=== PATIENT | female | born 1940 | race Caucasian/White ===

== ENCOUNTER → 2024-01-21 13:11 | Outpatient (REF) | payer MEDICARE, OTHER, SELFPAY | LOC: RAD 13:11 | PROVIDERS: ATTENDING PHYSICIAN Internal Medicine Cardiovascular Disease; FAMILY PHYSICIAN Internal Medicine | DX: R06.02 Shortness of breath (principal); R79.89 Other specified abnormal findings of blood chemistry; Z86.718 Personal history of other venous thrombosis and embolism; Z95.828 Presence of other vascular implants and grafts | CPT/HCPCS: 71046; 78582; A9540; A9567 ==

== ENCOUNTER 2024-01-24 17:50 | Inpatient (IN) | payer MEDICARE, OTHER, SELFPAY ==
[2024-01-24] VITALS (13 sets, daily range): BP systolic 124–189; BP diastolic 63–109; BMI 33.4; BMI 33.9
--- NOTE | 2024-01-24 12:22 | EDRN ---
Konrad RODRIGUEZ in room w/ pt.
[2024-01-24 12:33] LABS: % Basophils 0.9 % (0-2); % Eosinophils 1.6 % (0-6); % Immature Granulocytes 0.7 % (0-0.5); % Lymphocytes 17.8 % (20.5-51.1); % Monocytes 9.1 % (1.7-9.3); % Neutrophils 69.9 % (42.2-75.2); Absolute Basophils 0.1 10^3/uL (0-0.2); Absolute Eosinophils 0.1 10^3/uL (0-0.7); Absolute Immature Granulocytes 0.1 10^3/uL (0-0.05); Absolute Lymphocytes 1.3 10^3/uL (1.2-3.4); Absolute Monocytes 0.7 10^3/uL (0.1-0.6); Absolute Neutrophils 5.3 10^3/uL (1.4-6.5); Hematocrit 39.6 % (37.0-47.0); Hemoglobin 13.3 g/dL (12.0-16.0); Mean Corp Hgb Conc. 33.6 g/dL (33.0-37.0); Mean Corpuscular Hgb 29.2 pg (27.0-31.0); Mean Platelet Volume 8.7 fL (7.4-10.4); Nucleated Red Blood Cells % 0 %; Platelet Count 291 10^3/uL (130-400); Red Blood Cell Count 4.55 10^6/uL (4.20-5.40); Red Cell Dist. Width 13.5 % (11.5-14.5); White Blood Cell Count 7.5 10^3/uL (4.8-10.8)
--- NOTE | 2024-01-24 12:48 | ED.GENMED ---
History of Present Illness
General
Chief Complaint: Breathing Problem
Time Seen by Provider: 01/24/24 11:40
Travel History
Have you had any contact with someone who has COVID-19?: No
Do you have any symptoms of coronavirus? Fever > 100 degrees, chills, cough, shortness of breath, sore throat, loss of taste or smell, muscle aches, or headache?: No
History of Present Illness
History of Present Illness:
83-year-old female with history of hypertension, hyperlipidemia, and aortic stenosis presents to the emergency department for evaluation of dyspnea on exertion is progressively worsened over the past year. She was seen by her sketch maker and had
an outpatient echocardiogram this morning that showed a 4 cm left atrial mass was advised to come to the emergency department for hospital admission. She also had a chest x-ray and VQ scan done earlier in the week that was unremarkable. She is
anticoagulated due to prior blood clots. Denies any chest pain or dyspnea at rest.
Review of Systems
Review of Systems
Allergies reviewed?: Yes
All Other Systems: ROS reviewed and negative except as documented in HPI and ROS
Phy Exam
Physical Exam
Physical Exam:
GEN: Well appearing, NAD, WDWN
HEENT: Oral mucosa moist, no scleral icterus
Cardiac: Regular rate and rhythm, no murmur
Lung: No respiratory distress, no tachypnea
MSK: No gross deformity or injuries
Skin: Good color, no pallor or jaundice, no rashes
Neuro: AO x3, moves all extremities freely
Psych: Calm, cooperative
Scores
Heart Failure Risk
Heart Failure Risk Score: Not Applicable
Course
Orders/Labs/Results
Orders:
Orders
01/24/24 Lunch
Cholesterol Lowering
01/24/24 11:28
Electrocardiogram (*1) Urgent
Reason for Study: Shortness of Breath
EKG- Treatment ONCE
01/24/24 12:00
Cardiac Monitoring- Treatment ONCE
IV Insert/Care/Rem.- Treatment PRN
01/24/24 12:14
Complete Blood Count/With Diff Urgent
Comprehensive Metabolic Panel Urgent
Troponin I Urgent
01/24/24 13:42
CT Chest Angio W/wo Iv Contras Routine
Comment: ECG gated, attn left atrium
Reason For Exam: LA mass
Abnormal Lab Results
01/24/24
12:14
Abs Immat Gran (auto) 0.1 H 10^3/uL
(0-0.05)
Absolute Monos (auto) 0.7 H 10^3/uL
(0.1-0.6)
Immature Gran % 0.7 H %
(0-0.5)
Lymphocytes % 17.8 L %
(20.5-51.1)
Sodium 134 L mmol/L
(135-145)
BUN 28 H mg/dl
(7-17)
Glucose 103 H mg/dl
(70-99)
Calcium 10.4 H mg/dl
(8.4-10.2)
01/24/24 12:14
01/24/24 12:14
Vital Signs
Initial and Last Documented VS:
Initial Vital Signs
Temp Pulse Resp BP Pulse Ox
98.5 F 104 18 159/109 93
01/24/24 11:24 01/24/24 11:24 01/24/24 11:24 01/24/24 11:24 01/24/24 11:24
Last Documented Vital Signs
Temp Pulse Resp BP Pulse Ox
98.5 F 88 12 160/79 95
01/24/24 11:24 01/24/24 14:15 01/24/24 14:15 01/24/24 14:00 01/24/24 14:15
MDM/Problems Addressed
MDM/Problems Addressed:
Patient was admitted to the hospitalist service for further workup of this new left atrial mass
*Critical Care Note
Total Time (30-74mins, 75-104mins- exclusive of procedures): Not Applicable
ED Attending Note
-
Portions of this chart may have been created with voice recognition software.� Occasional wrong word or��sound alike� substitutions may have occurred due to the inherent limitations of voice recognition software.
Discharge Plan
Departure
Patient Disposition: Admit
Date of Disposition: 01/24/24
Time of Disposition: 12:50
Admit to: Telemetry
Presentation/result/management discussed w/ accepting MD/DO: Hospitalist
Discharge Problem:
Left atrial mass, Dyspnea on exertion
Prescriptions:
No Action
multivitamin Tablet
1 tab PO DAILY
acetaminophen 325 mg Tablet
650 mg PO BID
alprazolam 0.5 mg tablet
0.5 mg PO BID
cyclobenzaprine 5 mg Tablet
5 mg PO HS PRN (Reason: muscle spasm)
losartan-hydrochlorothiazide 100-12.5 mg tablet
1 tab PO DAILY
cholecalciferol (vitamin D3) [Vitamin D3] 25 mcg (1,000 unit) Tablet
50 mcg PO DAILY
azelastine [Astepro] 205.5 mcg (0.15 %) [place],Non-Aerosol
1 spray INTRANASAL BID
Rx Instructions:
2 sprays into each nostril
Gemtesa 75 mg tablet
75 mg PO DAILY
venlafaxine [Effexor XR] 150 MG capsule,extended release 24hr
150 mg PO DAILY
amitriptyline 25 MG tablet
25 mg PO DAILY
docusate sodium 100 MG capsule
100 mg PO BID
metoprolol succinate 25 MG tablet extended release 24 hr
25 mg PO DAILY
Eliquis 5 MG tablet
10 mg PO BID
Rx Instructions:
Take 10 mg (Two 5 mg pills) through 06/13. Starting 06/14 take ONE 5 mg tablet twice a day until told to stop by your doctor.
ascorbic acid (vitamin C) [Vitamin C] 500 mg Tablet
600 mg PO DAILY
cephalexin 500 mg capsule
2,000 mg PO PRN PRN (Reason: 4 hr prior to procedure)
albuterol sulfate [ProAir HFA] 90 mcg/actuation Hfa Aerosol Inhaler
2 puff INHALATION BID
Ocuvite Tablet
1 tab PO DAILY
zolpidem 10 MG tablet
10 mg PO HSPRN PRN (Reason: sleep) Qty: 30 0RF
oxycodone 5 MG tablet
5 mg PO Q4HPRN PRN (Reason: moderate to severe pain) Qty: 10 0RF
simvastatin 80 MG tablet
80 mg PO QPM Qty: 30 0RF
omeprazole 20 MG capsule,delayed release(DR/EC)
20 mg PO DAILY Qty: 30 0RF
Referrals:
Noah Wolfe MD [Family Provider] -
Interventions
Interventions:
*Risk Screen - Suicide Last Done: 01/24/24 11:24
*General Assessment Last Done: 01/24/24 11:24
*Neglect/Abuse Screening Last Done: 01/24/24 11:24
ED- Fall Risk Assessment Last Done: 01/24/24 12:04
*ED COVID-19 Vaccine History Last Done: 01/24/24 12:03
ED- Cardiac Assessment Last Done: 01/24/24 12:20
ED- Pulmonary Assessment Last Done: 01/24/24 12:20
Discharge Date and Time
Print Language: LAO
[2024-01-24 13:04] LABS: ALT (SGPT) 17 U/L (0-35); AST (SGOT) 29 U/L (14-36); Albumin 4.2 g/dl (3.5-5.0); Alkaline Phosphatase 72 U/L (38-126); Blood Urea Nitrogen 28 mg/dl (7-17); Calcium 10.4 mg/dl (8.4-10.2); Carbon Dioxide 26 mmol/L (22-30); Chloride 103 mmol/L (98-107); Estimated Creatinine Clearance 61 ml/min; Glucose 103 mg/dl (70-99); Potassium 4.5 mmol/L (3.5-5.1); Sodium 134 mmol/L (135-145); Total Bilirubin 0.3 mg/dl (0.2-1.3); Total Protein 7.1 g/dl (6.3-8.2); eGFR > 60.00
--- NOTE | 2024-01-24 13:15 | EDRN ---
Pt given cup of water after okayed w/ D. Darinel RODRIGUEZ.
[2024-01-24 13:16] LABS: Troponin I < 0.012 ng/ml
--- NOTE | 2024-01-24 13:50 | EDRN ---
Crystal Rose CREPE SOLE WIRE BRUSHER in to see pt w/ cardiology.
--- NOTE | 2024-01-24 14:10 | CON.CAR ---
Addendum entered and electronically signed by Jeff Robertson MD 01/24/24 17:42:
83 yo female with PMH of recurrent DVT on eliquis, mild was admitted with WAKEFIELD and finding of LUH mass on TTE. She reports progressive WAKEFIELD without chest pain. Exam with RRR, II/ systolic murmur at RUSB, no edema. TTE done today showed EF
55-60% with mild , and echodensity in LA measuring up to 4cm.
Will start with CTA to characterize the LA mass further.
Likely LIONEL Saturday.
Original Note:
Consultation
Consultation Request
Date/Time Consultation Requested: 01/24/24 1p
Date/Time Consultation Performed: 01/24/24 2p
Requesting Provider: David Tena PA-C
Performing Provider: NAGI Kumari for Dr. Robertson
Reason for Consultation: SOB and new LA mass on echo
Medical History
-
Chief Complaint: sob
History of Present Illness:
Mrs. 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 She had an outpatient echo at the [facility]
today and was noted to have a left atrial mass measuring up to 4cm and was sent to the ER for admission/evaluation. She states WAKEFIELD has been for 1 year and progressively worse for several months. WAKEFIELD occurs after walking across a room, improves
with rest. There are no associated cardiac symptoms. She is admitted to the hospitalist service and we are consulted for SOB and left atrial mass. VQ scan this week was low probability for PE as well. She follows with Dr. Vela.
Past Medical History
Past Medical History: Other (as above)
Past Surgical History: Orthopedic (left hip surgery x 2)
Social History
Tobacco: Former Smoker
Alcohol: Other (rare at holidays)
Personal:
Living: With Family
Family History
Family History: Reviewed & Not Pertinent
Allergies / Home Medications
Allergy/AdvReac Type Severity Reaction Status Date / Time
No Known Allergies Allergy Verified 05/28/21 16:04
�Medication �Instructions �Recorded �Confirmed �Type
omeprazole 20 mg capsule,delayed 20 mg PO DAILY Gastrointestinal 06/08/21 01/24/24 Rx
release issue ##30
oxycodone 5 mg tablet 5 mg PO Q4HPRN PRN moderate to 06/08/21 01/24/24 Rx
severe pain #10 tabs
simvastatin 80 mg tablet 80 mg PO QPM High cholesterol #30 06/08/21 01/24/24 Rx
tabs
zolpidem 10 mg tablet 10 mg PO HSPRN PRN sleep #30 tabs 06/08/21 01/24/24 Rx
acetaminophen 325 mg tablet 650 mg PO BID pain 01/24/24 01/24/24 History
albuterol sulfate 90 mcg/actuation 2 puff inhalation BID 01/24/24 01/24/24 History
aerosol inhaler (ProAir HFA) Lung/Breathing Issues
alprazolam 0.5 mg tablet 0.5 mg PO BID anxiety 01/24/24 01/24/24 History
amitriptyline 25 mg tablet 25 mg PO DAILY Mental 01/24/24 01/24/24 History
Health/Anxiety
apixaban 5 mg tablet (Eliquis) 10 mg PO BID Blood Clot 01/24/24 01/24/24 History
Prevention/Tx
ascorbic acid (vitamin C) 500 mg 600 mg PO DAILY Supplement 01/24/24 01/24/24 History
tablet (Vitamin C)
azelastine 205.5 mcg (0.15 %) 1 spray intranasal BID Allergies 01/24/24 01/24/24 History
nasal spray
cephalexin 500 mg capsule 2,000 mg PO PRN PRN 4 hr prior to 01/24/24 01/24/24 History
procedure
cholecalciferol (vitamin D3) 25 50 mcg PO DAILY Supplement 01/24/24 01/24/24 History
mcg (1,000 unit) tablet (Vitamin
D3)
cyclobenzaprine 5 mg tablet 5 mg PO HS PRN muscle spasm 01/24/24 01/24/24 History
docusate sodium 100 mg capsule 100 mg PO BID Constipation 01/24/24 01/24/24 History
losartan 100 1 tab PO DAILY Blood Pressure 01/24/24 01/24/24 History
mg-hydrochlorothiazide 12.5 mg
tablet
metoprolol succinate 25 mg 25 mg PO DAILY Blood Pressure 01/24/24 01/24/24 History
tablet,extended release 24 hr
multivitamin 1 tab PO DAILY Supplement 01/24/24 01/24/24 History
venlafaxine 150 mg 150 mg PO DAILY Mental 01/24/24 01/24/24 History
capsule,extended release 24 hr Health/Anxiety
(Effexor XR)
vibegron 75 mg tablet (Gemtesa) 75 mg PO DAILY bladder 01/24/24 01/24/24 History
vitamin A-vitamin C-vit E-min 1 tab PO DAILY Supplement 01/24/24 01/24/24 History
tablet
Review of Systems
-
History Source: Patient
All other systems: Negative unless noted
Physical Exam
Vital Signs
Temp Pulse Resp BP Pulse Ox
98.5 F 84 20 169/94 94
01/24/24 11:24 01/24/24 13:30 01/24/24 13:30 01/24/24 13:05 01/24/24 13:30
Lab Results
01/24/24 12:14
01/24/24 12:14
Troponin I < 0.012 ng/ml 01/24/24 12:14
Physical Exam
General: Well Developed, Well Nourished and No Apparent Distress
HEENT: Normocephalic, Anicteric and Moist Mucous Membranes
Respiratory: Wheezes (expiratory diffuse)
Cardiac: S1/S2, Regular Rhythm and Murmur (2/6 YANET)
Breast: Deferred by me
GI: Soft, Non Tender, Non Distended and Normal Bowel Sounds
Rectal: Deferred by Provider
Genito-urinary: No Costovertebral Tender
Musculoskeletal: No Clubbing and No Cyanosis
Skin: Warm and Dry
Neuro: AO x 3
Psych: Calm
Impression / Plan
-
LA mass - new on echo today.
- check chest CT today.
- pending CT results, consider LIONEL.
Aortic stenosis - mild on echo today.
- she admits to having rheumatic fever as a child.
HTN - stable on losartan/hct, toprol.
- continue meds and monitor.
HLD - stable on Zocor, continue.
DVT - history on Eliquis.
- briefly stopped since DVT resolved, but PCP resumed Eliquis 2 months ago due to recurrent LE DVT.
- continue Eliquis.
echo 01/24/24: Normal left ventricular size/thickness/function, EF 55-60%, there is an oval/irregular mass is seen within the left atrium which measures up to 4 cm, new mass, mild .
Data Reviewed
-
EKG: Tracing Personally Visualized and interpreted (NSR 93 bpm)
Radiology: Report Reviewed by me (cxr 01/21/24 NAD)
Medical Tests (Nuc Med, Echo etc): Report Reviewed by me (echo 01/24/24: Normal left ventricular size/thickness/function, EF 55-60%, there is an oval/irregular mass is seen within the left atrium which measures up to 4 cm, new mass, mild .) and
Other (VQ scan this week was low probability for PE)
Labs: Labs Reviewed by me
Old Records: Reviewed
--- NOTE | 2024-01-24 14:50 | HPS.HSE ---
Addendum entered and electronically signed by Frank Kyle MD 01/24/24 22:43:
Attending Addendum-
I performed a history and physical exam of the patient and discussed his management with the resident. I reviewed the resident's note and agree with the documented findings and plan of care patient sent to ED by cards re eval of 4cm left atrial mass
seen on echo today. Full 12 point ROS reviewed and negative except as documented Exam- vitals reviewed in chart GEN-nad heart 11/19 SM @ RUSB abd soft LE b/l +1 pitting edema Plan:
# Left Atrial Mass-
- seen on echo 01/23
- cards on board
- check CTA
- LIONEL to eval
# Anxiety/Depression
- cont meds including chronic benzos prn
# HTN
- stable monitor cont meds
# GERD
- cont meds
# Recurrent LE DVT
- has IVC filter
- change dosing of Eliquis to 5 bid - unclear why on 10mg po BID
CODE- Full d/w present
Time spent coordinating care, review of plan of care with resident, review of records, med rec, consults, notes, labs, rads, d/w nursing - 78 mins
Original Note:
Family Physician
-
Family Physician: Noah Wolfe
Chief Complaint
-
Progressive shortness of breath X 1 year, diaphoresis, fatigue.
History of Present Illness
83-year-old female with complex past medical history significant for DVT on Eliquis, hypertension, aortic stenosis, resents to the emergency department for evaluation of exertional shortness of breath that started about an year ago and progressively
worsened. She reports to feeling extremely fatigued, and sweaty over the last few months. She denies any chest pain, palpitations, nausea, vomitings, change in appetite, bloating, change in color of her stools, diarrhea, hematochezia. States
seeking health care on multiple occasions for shortness of breath over the last 1 year but nothing turned out positive. Due to her worsening shortness of breath over the last 2 months her primary care referred her to cardiology for complete
cardiological evaluation.
She was seen by her watch assembly inspector, had an outpatient echocardiogram this morning that showed a 4 cm left atrial mass, and was referred to emergency department by her watch assembly inspector (Dr. Vela).
She states to have severe back pain, peripheral neuropathy, urge urinary incontinence, mild left upper quadrant pain that is usually relieved with passing flatus.
Medical History
Past Medical History
Past Medical History: Reports Other
Additional Past Medical History:
Aortic stenosis, DVT, presence of IVC filter, mixed incontinence, PACs, hypertension, hyperlipidemia, GERD, constipation, melanoma X 2, and uterine prolapse..
Past Surgical History: Reports Other
Additional Past Surgical History:
Left femur fixation, left hip replacement, abdominal hysterectomy, tubal , melanoma excision.
Social History
Tobacco: Former Smoker (1 pack of cigarettes a day for 10 years quit in 1973.)
Alcohol: Occasional
Drug: None
Personal:
Living: With Family
Employment: Retired
Family History
Family History: CAD, Hypertension and Other (Melanoma in father, breast carcinoma in maternal aunts.)
Allergies / Home Medications
Allergies reflects when Allergies were last updated in [employer].
Home Medications with original date entered in [employer]
Allergy/Medication List:
No known allergies.
Review of Systems
-
History Source: Patient
Constitutional: Reports Other (Profuse sweating.)
EENT: Reports No Symptoms
Respiratory: Reports Trouble Breathing
Cardiac: Reports Other (Exertional shortness of breath)
Abdomen/GI: Reports No Symptoms
: Reports No Symptoms
Musculoskeletal: Reports Other (Bilateral lower extremity pain, tingling and numbness.)
Skin: Reports No Symptoms
Neurological: Reports No Symptoms
Endocrine: Reports No Symptoms
Psych: Reports No Symptoms
Physical Exam
Vital Signs
Vital Signs
Temp Pulse Resp BP Pulse Ox
98.5 F 88 12 160/79 95
01/24/24 11:24 01/24/24 14:15 01/24/24 14:15 01/24/24 14:00 01/24/24 14:15
Physical Exam
General: Well Developed, Well Nourished, Comfortable (On room air) and Other
HEENT: NormoCephalic, Atraumatic and PERRLA
Respiratory: Clear (No wheezes, rales, rhonchi.)
Cardiac: S1/S2, Regular Rhythm and Other (Systolic murmur 2/6.)
Breast: Other
GI: Soft, Non Tender, Non Distended and Normal Bowel Sounds
Genito-urinary: Deferred by me
Musculoskeletal: No Clubbing, No Cyanosis and No Edema
Neuro: AO x 3 and Other (Normal strength and tone. Cranial nerves intact. Sensation intact.)
Hematologic/Lymphatic: No Lymphadenopathy
Psych: Calm
Laboratory Results
-
01/24/24 12:14
01/24/24 12:14
Laboratory Results
Total Bilirubin 0.3 mg/dl (0.2-1.3) 01/24/24 12:14
AST 29 U/L (14-36) 01/24/24 12:14
ALT 17 U/L (0-35) 01/24/24 12:14
Alkaline Phosphatase 72 U/L (38-126) 01/24/24 12:14
Troponin I < 0.012 ng/ml 01/24/24 12:14
Impression/Plan
-
IMPRESSION:
83 Y old F's to the emergency room with gradually worsening shortness of breath (exertional) x 1 year, associated with severe fatigue and diaphoresis times last few months.
Diagnosed with left atrial mass of 4 cm.
PLAN:
Left atrial mass-
Echo-Normal left ventricular size, wall thickness and systolic function. LV ejection
fraction is 55-60% by visual assessment.
There is an oval/irregular mass is seen within the left atrium, which measures
up to 4 cm.
Plan is to obtain CT angiogram and possibly transesophageal echocardiogram.
CT angiogram results-
There is no evidence for an intraluminal left atrial mass that would correspond to the finding on earlier echocardiography.
There is a moderate hiatal hernia/partially intrathoracic stomach which is off the posterior and inferior margin of the left atrium. It is felt that this likely accounts for the finding on earlier echocardiography.
Coronary artery calcifications are present.
Thin bands of increased density within both lungs, adjacent to the pleural fissures, stable from examination of May 2021, compatible with scarring and/or chronic atelectasis.
Shortness of breath-
Secondary to left atrial mass versus possible ischemia versus PE versus stenosis of valves.
Troponin levels-WNL.
Sats 95% on room air.
Chest x-ray-no acute cardiopulmonary process.
VQ scan-low probability for PE.
Hyponatremia-
Serum sodium levels at 134.
Hypovolemic hyponatremia. Trend electrolytes.
History of DVT
VQ scan low probability for pulmonary embolism
IVC filters, on Eliquis twice daily.
Continue Eliquis.
Hypertension-
Continue home medication regimen with losartan HCTZ, metoprolol.
Hyperlipidemia-
On simvastatin 80.
Degenerative disc disease-
On oxycodone.
Anxiety, insomnia
Alprazolam twice a day discontinued.
zolpidem 10 mg on hold.
Alprazolam 0.5 mg once in the night.
Depression-
Continue amitriptyline and venlafaxine.
Mixed incontinence-
Continue Gemtesa.
Constipation-
docusate
DVT prophylaxis-on Eliquis
CODE STATUS-Limited DNR, (no intubation and mechanical ventilation.)
Power of associate attorney- Mervin
--- NOTE | 2024-01-24 15:46 | EDRN ---
Ddr. Mccauley was in to see pt prior to CT scan.
--- NOTE | 2024-01-24 18:04 | EDRN ---
NO Delay Nurse Report sent to 3rd floor for TEL bed 338.1 at this time w/ call placed to floor.
--- NOTE | 2024-01-24 18:17 | EDRN ---
Pt is eating her supper at this time. Pt will be transported to her admission bed when she is done eating.
[2024-01-24] MEDS: ProAIR HFA INHALER 2 PUFF INH (20:03)
[2024-01-24] MEDS: ELIQUIS 5 MG PO (20:39)
[2024-01-24] MEDS: ELAVIL 25 MG PO (20:40)
[2024-01-24] MEDS: COLACE 100 MG PO (20:40)
[2024-01-24] MEDS: TYLENOL 650 MG PO (20:40)
[2024-01-24] MEDS: AMBIEN 5 MG PO ×2 (20:40→23:21)
[2024-01-25 03:54] VITALS: BP 127/73
[2024-01-25 07:00] VITALS: BP 143/87
[2024-01-25 07:42] LABS: % Basophils 1.1 % (0-2); % Eosinophils 3.2 % (0-6); % Immature Granulocytes 1.4 % (0-0.5); % Lymphocytes 25.4 % (20.5-51.1); % Monocytes 11.4 % (1.7-9.3); % Neutrophils 57.5 % (42.2-75.2); Absolute Basophils 0.1 10^3/uL (0-0.2); Absolute Eosinophils 0.2 10^3/uL (0-0.7); Absolute Immature Granulocytes 0.1 10^3/uL (0-0.05); Absolute Lymphocytes 1.6 10^3/uL (1.2-3.4); Absolute Monocytes 0.7 10^3/uL (0.1-0.6); Absolute Neutrophils 3.6 10^3/uL (1.4-6.5); Hemoglobin 12.8 g/dL (12.0-16.0); Mean Corp Hgb Conc. 33.7 g/dL (33.0-37.0); Mean Corpuscular Hgb 29.4 pg (27.0-31.0); Mean Corpuscular Volume 87.4 fL (81.0-99.0); Mean Platelet Volume 8.8 fL (7.4-10.4); Nucleated Red Blood Cells % 0 %; Platelet Count 271 10^3/uL (130-400); Red Blood Cell Count 4.35 10^6/uL (4.20-5.40); Red Cell Dist. Width 13.3 % (11.5-14.5); White Blood Cell Count 6.2 10^3/uL (4.8-10.8)
--- NOTE | 2024-01-25 08:54 | W.PN.HOSP.TC ---
Today's Communication/Plan
-
likely d/c
Assessment / Plan
Assessment / Plan
pt is an 83 year old female
Left atrial mass--noted on echo--Ct chest confirms moderate hiatal hernia with partial intrathoracic stomach NOT intraluminal LA mass
Shortness of breath-Secondary to possible ischemia --Troponin levels-WNL--cont outpt workup--Chest x-ray-no acute cardiopulmonary process--VQ scan-low probability for PE.
Hyponatremia-Serum sodium levels at 134.
Hypovolemic hyponatremia. Trend electrolytes.
History of DVT-VQ scan low probability for pulmonary embolism-IVC filters, on Eliquis twice daily--Continue Eliquis.
Essential Hypertension-Continue home medication regimen with losartan HCTZ, metoprolol.
Hyperlipidemia-On simvastatin 80.
Degenerative disc disease-On oxycodone.
Anxiety, insomnia--Alprazolam twice a day discontinued--zolpidem 10 mg on hold--Alprazolam 0.5 mg once in the night.
Depression-Continue amitriptyline and venlafaxine.
Mixed incontinence-Continue Gemtesa.
Constipation-docusate
DVT prophylaxis-on Eliquis
CODE STATUS-Limited DNR, (no intubation and mechanical ventilation.)
Power of locomotive repairer diesel- Mervin
Anticipated Discharge: Today
Subjective/Interval History
-
Date of Service: January 25, 2024
pt asking about her morning meds--otherwise no c/o
Objective Data
-
Labs:
Laboratory Results
01/25/24
06:53
WBC 6.2
Hgb 12.8
Hct 38.0
Plt Count 271
Sodium Pending
Potassium Pending
Chloride Pending
Carbon Dioxide Pending
BUN Pending
Creatinine Pending
Glucose Pending
Calcium Pending
Total Bilirubin Pending
AST Pending
ALT Pending
Alkaline Phosphatase Pending
Vital Signs:
max temp for 24 hours
01/24/24
23:50
Temp 98.6 F
Vital Signs
Temp Pulse Resp BP Pulse Ox
98.5 F 83 18 143/87 92
01/25/24 07:00 01/25/24 07:00 01/25/24 07:00 01/25/24 07:00 01/25/24 07:00
I&O
01/24/24 01/25/24 01/26/24
06:59 06:59 06:59
Intake Total 400 / 400
Balance 400 / 400
Review of Systems
-
All other systems: Reviewed and negative
Physical Exam
-
General: Well Developed, Well Nourished and No Apparent Distress
HEENT: Normocephalic and Atraumatic
Respiratory: Clear to Auscultation; Negative Wheezes or Rhonchi
Cardiac: Regular Rhythm, S1/S2 and Murmur
GI: Soft, Nontender, Nondistended and Normal Bowel Sounds
Musculoskeletal: No Clubbing, No Cyanosis and No Edema
Neuro: Awake and Alert
[2024-01-25] MEDS: ProAIR HFA INHALER 2 PUFF INH (09:08)
[2024-01-25] MEDS: COLACE 100 MG PO (09:15)
[2024-01-25] MEDS: THERAGRAN 1 TABLET PO (09:15)
[2024-01-25] MEDS: ELAVIL 25 MG PO (09:15)
[2024-01-25] MEDS: PROTONIX 40 MG PO (09:16)
[2024-01-25] MEDS: VITAMIN C 500 MG PO (09:16)
[2024-01-25] MEDS: TYLENOL 650 MG PO (09:16)
[2024-01-25] MEDS: TOPROL XL 25 MG PO (09:17)
[2024-01-25] MEDS: ROXICODONE 5 MG PO (09:18)
[2024-01-25] MEDS: HYZAAR 100-12.5 TABLET 1 TAB PO (09:19)
[2024-01-25] MEDS: EFFEXOR XR 150 MG PO (09:23)
[2024-01-25] MEDS: ELIQUIS 5 MG PO (09:24)
[2024-01-25 10:18] LABS: ALT (SGPT) 14 U/L (0-35); AST (SGOT) 28 U/L (14-36); Albumin 3.9 g/dl (3.5-5.0); Alkaline Phosphatase 69 U/L (38-126); Blood Urea Nitrogen 21 mg/dl (7-17); Carbon Dioxide 27 mmol/L (22-30); Chloride 103 mmol/L (98-107); Estimated Creatinine Clearance 58 ml/min; Glucose 91 mg/dl (70-99); Sodium 139 mmol/L (135-145); Total Bilirubin 0.5 mg/dl (0.2-1.3); Total Protein 6.8 g/dl (6.3-8.2); eGFR > 60.00
[2024-01-25 11:00] VITALS: BP 147/92
--- NOTE | 2024-01-25 13:13 | W.PN.CD ---
Today's Communication / Plan
-
she will follow up with PCP for hiatal hernia
I reminded her of stress test this Saturday with us as outpatient for WAKEFIELD
Impression / Plan
-
LA mass - suspected on echo
- followed up with CTA
- discussed with radiology: 'There is no evidence for an intraluminal left atrial mass that would correspond to the finding on earlier echocardiography. There is a moderate hiatal hernia/partially intrathoracic stomach which is off the
posterior and inferior margin of the left atrium. It is felt that this likely accounts for the finding on earlier echocardiography.'
Aortic stenosis - mild on echo
HTN - stable on losartan/hctx, toprol.
- continue meds and monitor.
HLD - stable on Zocor, continue.
DVT - history on Eliquis.
- briefly stopped since DVT resolved, but PCP resumed Eliquis 2 months ago due to recurrent LE DVT.
- continue Eliquis 5mg bid
echo 01/24/24: Normal left ventricular size/thickness/function, EF 55-60%, there is an oval/irregular mass is seen within the left atrium which measures up to 4 cm, new mass, mild .
Physical Exam
Vital Signs/Labs
Vital Signs
Temp Pulse Resp BP Pulse Ox
98.1 F 79 18 147/92 92
01/25/24 11:00 01/25/24 11:00 01/25/24 11:00 01/25/24 11:00 01/25/24 11:00
01/24/24 01/25/24 01/26/24
06:59 06:59 06:59
Actual Weight 81.306 kg
01/25/24 06:53
01/25/24 06:53
LAB Results
01/24/24
12:14
Troponin I < 0.012
Physical Exam
Constitutional: No acute distress and Comfortable
EENT: Moist mucous membranes
Cardiovascular: Rhythm & rate is regular, Pedal edema is absent, JVD pressure is normal and Systolic murmur present
Respiratory: Respiratory effort normal, Lungs clear to auscul. and Wheeze Absent
GI: Soft, Distention absent and Flat
Neuro/Psych: AO x 3
Data Reviewed
-
Date of Service: January 25, 2024
X-Ray/CT/US/MRI/NUC/PET: Report Reviewed by me (CTA per note)
--- NOTE | 2024-01-25 13:57 | W.DCSUMMARY ---
Addendum entered and electronically signed by Izzy Gilbert MD 01/25/24 14:09:
Fully read and agree with d/c summary as put forth by Dr. Soriano. CT scan showed hiatal hernia pushing on left atrium as likely source of ECHO finding.
Original Note:
Discharge Summary
Discharge Data
Date of Admission: 01/24/24
Date of Discharge: 01/25/24
-
Pending Results: No
Hospital Course
83-year-old female with complex past medical history significant for DVT on Eliquis, hypertension, aortic stenosis, resents to the emergency department for evaluation of exertional shortness of breath that started about an year ago and progressively
worsened. 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
Hospital course-
During her hospital course, she is evaluated with VQ scan, EKG, troponins, CT angiogram. VQ scan showed low probability for PE. EKG has possible anterior infarct of undetermined age. Troponins are negative. CT angiogram showed no evidence for an
intraluminal left atrial mass that corresponded with an earlier echocardiogram. Patient is scheduled for outpatient based stress test, and is advised to follow-up with her primary care for further hiatal hernia evaluation. There is no change in
her home medication regimen upon discharge.
Discharge Plan
-
Patient Disposition: Home (Routine Discharge)
Discharge Diagnosis/Procedures: Left atrial mass not confirmed by CT chest, shortness of breath, hyponatremia, history of deep venous thrombosis with low probability VQ scan, essential hypertension, hyperlipidemia, degenerative disc disease,
anxiety/insomnia, depression, incontinence, constipation
Condition: Good
Diet: Low Cholesterol
Activity: As tolerated
Driving Restrictions: As prior to admission
Bathing Restrictions: None
Referrals:
Jarrod Vela MD [Active] - 03/05/24 11:20 am
Noah Wolfe MD [Family Provider] - in less than 1 week
Prescriptions:
Continued
multivitamin Tablet
1 tab PO DAILY
acetaminophen 325 mg Tablet
650 mg PO BID
alprazolam 0.5 mg tablet
0.5 mg PO BID
cyclobenzaprine 5 mg Tablet
5 mg PO HS PRN (Reason: muscle spasm)
losartan-hydrochlorothiazide 100-12.5 mg tablet
1 tab PO DAILY
cholecalciferol (vitamin D3) [Vitamin D3] 25 mcg (1,000 unit) Tablet
50 mcg PO DAILY
azelastine 205.5 mcg (0.15 %) [place],Non-Aerosol
1 spray INTRANASAL BID
Rx Instructions:
2 sprays into each nostril
Gemtesa 75 mg tablet
75 mg PO DAILY
venlafaxine [Effexor XR] 150 MG capsule,extended release 24hr
150 mg PO DAILY
amitriptyline 25 MG tablet
25 mg PO DAILY
Rx Instructions:
takes at night
docusate sodium 100 MG capsule
100 mg PO BID
metoprolol succinate 25 MG tablet extended release 24 hr
25 mg PO DAILY
ascorbic acid (vitamin C) [Vitamin C] 500 mg Tablet
600 mg PO DAILY
cephalexin 500 mg capsule
2,000 mg PO PRN PRN (Reason: 4 hr prior to procedure)
albuterol sulfate [ProAir HFA] 90 mcg/actuation Hfa Aerosol Inhaler
2 puff INHALATION BID
vitamin A-vitamin C-vit E-min Tablet
1 tab PO DAILY
zolpidem 10 MG tablet
10 mg PO HSPRN PRN (Reason: sleep) Qty: 30 0RF
oxycodone 5 MG tablet
5 mg PO Q4HPRN PRN (Reason: moderate to severe pain) Qty: 10 0RF
simvastatin 80 MG tablet
80 mg PO QPM Qty: 30 0RF
omeprazole 20 MG capsule,delayed release(DR/EC)
20 mg PO DAILY Qty: 30 0RF
Changed
Eliquis 5 MG tablet
5 mg PO BID Qty: 0 0RF
Rx Instructions:
Take 10 mg (Two 5 mg pills) through 06/13. Starting 06/14 take ONE 5 mg tablet twice a day until told to stop by your doctor.
Discharge Orders:
Discharge Patient (As Directed); Ordered 01/25/24
Ordered By: Izzy Gilbert
Discharge Date and Time
Discharge Date/Time: 01/25/24 12:28
Print Language: MAURITANIAN
== END 2024-01-25 12:28 | disposition home or self-care (01) | DRG 303 ==
LOC: 3 WEST ACU 17:50
PROVIDERS: Physician Assistant; Student in an Organized Health Care Education/Training Program; ADMITTING PHYSICIAN Family Medicine; ATTENDING PHYSICIAN Internal Medicine; EMERGENCY PHYSICIAN Emergency Medicine; FAMILY PHYSICIAN Internal Medicine; OTHER PHYSICIAN Internal Medicine
DX: I51.9 Heart disease, unspecified (principal); E87.1 Hypo-osmolality and hyponatremia; Z87.891 Personal history of nicotine dependence; F32.A Depression, unspecified; F41.9 Anxiety disorder, unspecified; I10 Essential (primary) hypertension; K21.9 Gastro-esophageal reflux disease without esophagitis; E86.1 Hypovolemia; E78.00 Pure hypercholesterolemia, unspecified; N39.46 Mixed incontinence; K59.00 Constipation, unspecified; I35.0 Nonrheumatic aortic (valve) stenosis; K44.9 Diaphragmatic hernia without obstruction or gangrene; G47.00 Insomnia, unspecified; G62.9 Polyneuropathy, unspecified; I25.10 Atherosclerotic heart disease of native coronary artery without angina pectoris; Z66 Do not resuscitate; Z79.01 Long term (current) use of anticoagulants; Z86.718 Personal history of other venous thrombosis and embolism
CPT/HCPCS: 71046; 71275; 78582; 80053; 84484; 85025; 93005; 93306; 94640; 99285; A9540; A9567; Q9967

== ENCOUNTER → 2024-01-31 11:17 | Outpatient (REF) | payer MEDICARE, OTHER, SELFPAY | LOC: DHCBC/DCA 11:17 | PROVIDERS: ATTENDING PHYSICIAN Internal Medicine Cardiovascular Disease; FAMILY PHYSICIAN Internal Medicine | DX: R06.02 Shortness of breath (principal) | CPT/HCPCS: 78452; 93017; A9500; J2785 ==

== ENCOUNTER → 2024-03-11 08:18 | Outpatient (REF) | payer MEDICARE, OTHER, SELFPAY | LOC: HWRAD 08:18 | PROVIDERS: ATTENDING PHYSICIAN Nurse Practitioner; FAMILY PHYSICIAN Internal Medicine | DX: N39.46 Mixed incontinence (principal); N81.6 Rectocele; N99.3 Prolapse of vaginal vault after hysterectomy | CPT/HCPCS: 76770; 76856 ==

== ENCOUNTER 2024-07-15 01:00 | Emergency (ER) | payer MEDICARE, OTHER, SELFPAY ==
[2024-07-15 01:03] VITALS: BP 133/76
[2024-07-15 01:41] VITALS: BP 118/63; BMI 33.4
[2024-07-15 02:13] VITALS: BP 107/65
--- NOTE | 2024-07-15 02:46 | ED.MUSCINJ ---
HPI-Injury
General
Chief Complaint: Fall
Source: patient and family
Exam Limitations: none
Time Seen by Provider: 07/15/24 02:30
Nursing documentation reviewed up to this point in time: agreed with
History of Present Illness-Injury
Initial Injury comments:
Pleasant 84-year-old female presents to the emergency department with left-sided chest wall pain. She states that she went to sit down on her bed and slid off the bed and fell to the ground. She did not hit her head. She landed on the left side
of her body. She does have a chronic back pain and states that this fall exacerbated her symptoms. Denies bowel or bladder retention or incontinence. Denies any paresthesias. Has no difficulty walking. Her only complaint is left-sided rib pain.
Her pain is worse with coughing and sneezing. She denies shortness of breath.
Vital signs are stable. Patient not hypoxic
Nursing note reviewed. I agree with nursing documentation up to this point in time.
Home Meds and allergies reviewed.
NUMBER AND COMPLEXITY OF PROBLEMS ADDRESSED AT THE ENCOUNTER
� Chronic conditions affecting care: Spinal stimulator for chronic low back pain, chronic bronchitis, pneumonia, hypertension, hyperlipidemia, heart murmur, colitis
� Acute Exacerbation and/or Progression of Chronic Illness: Chronic back pain
� Differential Diagnosis includes: Broken ribs, pulmonary contusion, contusion, pneumothorax
AMOUNT AND/OR COMPLEXITY OF DATA TO BE REVIEWED AND ANALYZED
I performed an independent evaluation of the following and my interpretation is:
EKG:
Pulse Ox: Not Hypoxic
Cap Lining Machine Operator: Sinus Rhythm
CT:
X-rays:
Ultrasound:
Laboratory Studies:
Other:
Review of other/old records:
Clinical information was obtained by an independent historian:
Prescriptions/Medications Considered but not given:
Further testing considered but not performed:
RISK OF COMPLICATIONS AND/OR MORBIDITY OR MORTALITY OF PATIENT MANAGEMENT
Social determinants of health affecting care: Good Social Support, at the bedside
Discussion with other providers:
Escalation of care including admission/observation vs risk of discharge considered: After being observed in the emergency department, patient is stable for discharge.
CRITICAL CARE NOTE: Not applicable
Total Time (exclusive of procedures):
Update:
Phy Exam
General Physical Exam
General Presentation: well appearing and mild distress
General age: appears stated age
General Skin: warm and dry
General Habitus: normal
General Mental: alert
Cardiovascular Exam
Cardiovascular Exam: regular rate/rhythm and no edema
Pulmonary Exam
Pulmonary Exam: lungs clear and no respiratory distress
Cough: non productive cough
Neurological Exam
Neurological Exam: alert and oriented x3
Musculoskeletal Exam
Musculoskeletal Exam: full ROM, neuro vasc intact and other (Chest wall pain)
Skin Exam
Skin Exam: normal color and warm/dry
Psychiatric Exam
Psychiatric Exam: normal mood/affect
Injury Course
Orders/Labs/Results
Orders:
Orders
07/15/24 01:42
CXR2 [CR Chest - 2 Views ] Urgent
Comment:
Reason For Exam: fall, left rib pain
07/15/24 02:43
Incentive Spirometry [Rx Incentive Spirometry] [RESP] Urgent
Frequency: q1h while awake
*Radiology
Radiology exam reviewed: all reviewed NAD by ED Provider (No obvious rib fracture)
*Pulse Oximetry
Patient hypoxic: no
*Critical Care Note
Total Time (30-74mins, 75-104mins- exclusive of procedures): Not Applicable
ED Attending Note
-
Portions of this chart may have been created with voice recognition software.� Occasional wrong word or��sound alike� substitutions may have occurred due to the inherent limitations of voice recognition software.
Discharge Plan
Departure
Patient Disposition: Home (Routine Discharge)
Date of Disposition: 07/15/24
Time of Disposition: 02:50
Patient with high blood pressure during this ER visit?: No
Discharge Problem:
Contusion of rib on left side
Instructions: How to Use an Incentive Spirometer, Preventing falls in adults, Bruised Rib (DC), BLOOD PRESSURE
Prescriptions:
No Action
multivitamin Tablet
1 tab PO DAILY
acetaminophen 325 mg Tablet
650 mg PO BID
alprazolam 0.5 mg tablet
0.5 mg PO BID
cyclobenzaprine 5 mg Tablet
5 mg PO HS PRN (Reason: muscle spasm)
losartan-hydrochlorothiazide 100-12.5 mg tablet
1 tab PO DAILY
cholecalciferol (vitamin D3) [Vitamin D3] 25 mcg (1,000 unit) Tablet
50 mcg PO DAILY
azelastine 205.5 mcg (0.15 %) [place],Non-Aerosol
1 spray INTRANASAL BID
Rx Instructions:
2 sprays into each nostril
Gemtesa 75 mg tablet
75 mg PO DAILY
venlafaxine [Effexor XR] 150 MG capsule,extended release 24hr
150 mg PO DAILY
amitriptyline 25 MG tablet
25 mg PO DAILY
Rx Instructions:
takes at night
docusate sodium 100 MG capsule
100 mg PO BID
metoprolol succinate 25 MG tablet extended release 24 hr
25 mg PO DAILY
ascorbic acid (vitamin C) [Vitamin C] 500 mg Tablet
600 mg PO DAILY
cephalexin 500 mg capsule
2,000 mg PO PRN PRN (Reason: 4 hr prior to procedure)
albuterol sulfate [ProAir HFA] 90 mcg/actuation Hfa Aerosol Inhaler
2 puff INHALATION BID
vitamin A-vitamin C-vit E-min Tablet
1 tab PO DAILY
Eliquis 5 MG tablet
5 mg PO BID Qty: 0 0RF
Rx Instructions:
Take 10 mg (Two 5 mg pills) through 06/13. Starting 06/14 take ONE 5 mg tablet twice a day until told to stop by your doctor.
zolpidem 10 MG tablet
10 mg PO HSPRN PRN (Reason: sleep) Qty: 30 0RF
oxycodone 5 MG tablet
5 mg PO Q4HPRN PRN (Reason: moderate to severe pain) Qty: 10 0RF
simvastatin 80 MG tablet
80 mg PO QPM Qty: 30 0RF
omeprazole 20 MG capsule,delayed release(DR/EC)
20 mg PO DAILY Qty: 30 0RF
Referrals:
[facility] [Outside]
[facility] [Outside]
Activity Restrictions/Additional Instructions:
It was a pleasure meeting you and taking part in your care. We hope for your continued healing and wellness.
Please read discharge instructions in their entirety. However, they are for general education and may not describe your exact diagnosis at discharge. Information on your ER visit and medical conditions were discussed with you along with appropriate
follow up information...
If indicated, please take your medications as instructed and indicated on discharge paperwork.
Please schedule a follow up appointment as directed. Call to schedule an appointment
Please return to the emergency department with ANY change in, persisting, or worsening of symptoms. If any of your symptoms do not improve, or persist, or become more severe within 6-12 hours, please return to the emergency department for further
care.
Please return to the emergency department if you develop a headache, neck pain/stiffness, fever greater than 100.4F, chest pain, shortness of breath, persistent nausea, vomiting, slurred speech, difficulty walking, numbness/tingling, weakness, signs
of infection or any other symptoms that are worrisome to you.
If you have any questions or concerns please do not hesitate to call the Hospital at or E-mail me directly at [email or web address]
Interventions
Interventions:
*Risk Screen - Suicide Last Done: 07/15/24 01:08
*General Assessment Last Done: 07/15/24 01:08
*Neglect/Abuse Screening Last Done: 07/15/24 01:43
*ED COVID-19 Vaccine History Last Done: 07/15/24 01:08
ED-Musculoskeletal Assessment Last Done: 07/15/24 01:44
ED- Neurological Assessment Last Done: 07/15/24 01:44
ED-Skin Assessment Last Done: 07/15/24 01:44
Discharge Date and Time
Print Language: SETSWANA
[2024-07-15 03:00] VITALS: BP 137/98
[2024-07-15] MEDS: TYLENOL 1000 MG PO (03:21)
== END 2024-07-15 04:10 | disposition home or self-care (01) ==
LOC: EMR 01:00
PROVIDERS: EMERGENCY PHYSICIAN Student in an Organized Health Care Education/Training Program; FAMILY PHYSICIAN Internal Medicine
DX: S20.212A Contusion of left front wall of thorax, initial encounter (principal); R05.9 Cough, unspecified; W06.XXXA Fall from bed, initial encounter; M54.50 Low back pain, unspecified; E78.5 Hyperlipidemia, unspecified; I10 Essential (primary) hypertension; R01.1 Cardiac murmur, unspecified; F32.A Depression, unspecified; G89.29 Other chronic pain; M19.90 Unspecified osteoarthritis, unspecified site; H35.30 Unspecified macular degeneration; K52.9 Noninfective gastroenteritis and colitis, unspecified; Z79.01 Long term (current) use of anticoagulants; Z96.642 Presence of left artificial hip joint; Z85.828 Personal history of other malignant neoplasm of skin; Z87.01 Personal history of pneumonia (recurrent)
CPT/HCPCS: 99284; 71046; 93005

== ENCOUNTER 2024-07-18 15:36 | Inpatient (IN) | payer MEDICARE, OTHER, SELFPAY ==
[2024-07-18] VITALS (11 sets, daily range): BP systolic 112–153; BP diastolic 59–99; BMI 30.4
--- NOTE | 2024-07-18 11:40 | ED.GENMED ---
History of Present Illness
General
Chief Complaint: Breathing Problem
Source: patient
Exam Limitations: none
Time Seen by Provider: 07/18/24 11:24
History of Present Illness
History of Present Illness:
84-year-old female complaining of increased shortness of breath wheezing and left lateral chest pain. Patient fell 2 days ago. However shortness of breath became progressive overnight. Moderate in nature. Increased pain with coughing and
breathing. No abdominal pain no fever no other complaints
Past History
Past History
ED Past Medical History: HTN, Hypercholesterolemia, Valvular disease and Other (Neuropathy)
ED Past Surgical History: Orthopedic, Tonsilectomy, Urological and Other (Parathyroid removal)
Review of Systems
Review of Systems
All Other Systems: Not applicable
Constitutional: Denies fever
Respiratory: Reports cough
ABD/GI: Reports no symptoms
Phy Exam
Physical Exam
Physical Exam:
GENERAL: Alert and oriented. Very uncomfortable. Tachypneic. In obvious pain. In no apparent distress
EYE: Orbits normal.
NECK: Supple, no significant adenopathy.
ENT: Pharynx without erythema
CARDIAC: Tachycardic and regular no murmur worse.
LUNGS: Moderate tachypnea. Diffuse expiratory wheezing basilar rales and rhonchi. Left lateral chest wall tenderness. No crepitus.
ABDOMEN: Soft, without focal tenderness or distention
NEUROLOGICAL: Alert and oriented , grossly non-focal
SKIN: Warm and dry, no rash or lesion, no discoloration, skin intact.
MUSCULOSKELETAL: No edema,no deformity.Good color
PSYCH: Normal and appropriate interaction.
Scores
Heart Failure Risk
Heart Failure Risk Score: Not Applicable
Course
Orders/Labs/Results
Orders:
Orders
07/18/24 11:29
CXR Port [CR Chest Portable - 1 View] Urgent
Comment:
Reason For Exam: sob. recent trauma
Reason Study Needs to be Portable: Patient Unstable
07/18/24 11:30
Electrocardiogram (*1) Stat
Reason for Study: Other
Other Reason for Exam: chest pain
Cardiac Monitoring- Treatment ONCE
EKG- Treatment ONCE
IV Insert/Care/Rem.- Treatment PRN
Ipratropium/Albuterol Sulfate [Duoneb] 3 ml INH R NOW STA
O2 Therapy [RESP] Stat
Titrate/Wean O2 to maintain O2 sat greater than (%): 93
Pulse Ox/cont/shift [RESP] Stat
Quantity: 1
07/18/24 11:54
Basic Metabolic Panel Urgent
COVID-19 Antigen Urgent
Source: Nasal Swab
Complete Blood Count/With Diff Urgent
NT-proBNP Urgent
Troponin I Urgent
Influenza A+B Rapid Molecular Urgent
ARLET Source: Nasal Swab
Specimen Description:
07/18/24 12:08
Morphine Sulfate 2 mg IV NOW STA
Abnormal Lab Results
07/18/24
11:54
WBC 14.0 H 10^3/uL
(4.8-10.8)
Abs Immat Gran (auto) 0.1 H 10^3/uL
(0-0.05)
Absolute Neuts (auto) 11.1 H 10^3/uL
(1.4-6.5)
Absolute Lymphs (auto) 1.1 L 10^3/uL
(1.2-3.4)
Absolute Monos (auto) 1.4 H 10^3/uL
(0.1-0.6)
Immature Gran % 0.7 H %
(0-0.5)
Neutrophils % 79.6 H %
(42.2-75.2)
Lymphocytes % 8.2 L %
(20.5-51.1)
Monocytes % 10.2 H %
(1.7-9.3)
BUN 38 H mg/dl
(7-17)
Glucose 139 H mg/dl
(70-99)
Calcium 10.4 H mg/dl
(8.4-10.2)
07/18/24 11:54
07/18/24 11:54
Vital Signs
Initial and Last Documented VS:
Initial Vital Signs
Temp Pulse Resp BP Pulse Ox
98.1 F 69 22 141/86 99
07/18/24 11:16 07/18/24 11:16 07/18/24 11:16 07/18/24 11:16 07/18/24 11:16
Last Documented Vital Signs
Temp Pulse Resp BP Pulse Ox
98.1 F 113 16 119/76 100
07/18/24 11:16 07/18/24 12:00 07/18/24 12:00 07/18/24 12:00 07/18/24 12:00
MDM/Problems Addressed
Differential Diagnosis Includes:
Patient clinically has a rib fracture based on her symptoms. Diffuse wheezing and rhonchi. Breath sounds are equal. Chest x-ray was done immediately to rule out pneumothorax which I do not see. I question a left lower rib fracture. Warrants
nebulizer treatments cardiac and lung workup and clearly warrants admission.
*Radiology
Radiology exam reviewed: radiology read reviewed (Changes right lung base)
*Pulse Oximetry
Patient hypoxic: yes
*EKG
Interpreted by ED Provider?: Yes
Interpretation: abnormal
Comparison EKG: no comparison EKG present
Heart Rate: 113
Rate: tachycardiac
Rhythm: sinus
[place]: normal axis
Interval: normal interval
QRS Pattern: normal QRS
Ischemia: no ischemia
*Postal Worker Interpretation
Rate: tachycardiac
Interpretation: abnormal
Heart Rate: 110
Rhythm: sinus
*Critical Care Note
Total Time (30-74mins, 75-104mins- exclusive of procedures): Not Applicable
Data Reviewed
Review of Other/Old Records Reveals: Labs, Records, Radiology Studies, Testing and Discharge Summary
Update Note
Update Note:
Likely atelectasis from splinting from blunt chest trauma. Clinically rib fracture. However with his underlying lung issues and diffuse wheezing and hypoxia warrants inpatient management
ED Attending Note
-
Portions of this chart may have been created with voice recognition software.� Occasional wrong word or��sound alike� substitutions may have occurred due to the inherent limitations of voice recognition software.
Discharge Plan
Departure
Patient Disposition: Admit
Date of Disposition: 07/18/24
Time of Disposition: 12:31
Presentation/result/management discussed w/ accepting MD/DO: Hospitalist
Discharge Problem:
Respiratory distress, Clinical rib fracture
Prescriptions:
No Action
multivitamin Tablet
1 tab PO NOON
acetaminophen 325 mg Tablet
650 mg PO BID
alprazolam 0.5 mg tablet
0.5 mg PO BIDPRN PRN (Reason: anxiety)
cyclobenzaprine 5 mg Tablet
5 mg PO HSPRN PRN (Reason: muscle spasm)
losartan-hydrochlorothiazide 100-12.5 mg tablet
1 tab PO DAILY
cholecalciferol (vitamin D3) [Vitamin D3] 25 mcg (1,000 unit) Tablet
50 mcg PO NOON
azelastine 205.5 mcg (0.15 %) [place],Non-Aerosol
2 spray INTRANASAL BID
Gemtesa 75 mg tablet
75 mg PO DAILY
venlafaxine [Effexor XR] 150 MG capsule,extended release 24hr
150 mg PO DAILY
amitriptyline 25 MG tablet
25 mg PO HS
docusate sodium 100 MG capsule
100 mg PO BID
metoprolol succinate 25 MG tablet extended release 24 hr
25 mg PO DAILY
ascorbic acid (vitamin C) [Vitamin C] 500 mg Tablet
500 mg PO NOON
Ocutabs Tablet
1 tab PO NOON
Eliquis 5 MG tablet
5 mg PO BID Qty: 0 0RF
magnesium hydroxide [Milk of Magnesia] 400 mg/5 mL Suspension
2,400 mg PO DAILYPRN PRN (Reason: constipaiton)
albuterol sulfate [ProAir HFA] 90 mcg/actuation Hfa Aerosol Inhaler
2 inh INHALATION R BID
Caltrate 600 plus D 600 mg-20 mcg (800 unit) Tablet,Chewable
1 tab PO NOON
zolpidem 10 MG tablet
10 mg PO HS
oxycodone 5 MG tablet
10 mg PO TID
simvastatin 80 MG tablet
80 mg PO QPM Qty: 30 0RF
omeprazole 20 MG capsule,delayed release(DR/EC)
20 mg PO DAILY Qty: 30 0RF
Referrals:
Noah Wolfe MD [Family Provider] -
Interventions
Interventions:
*Risk Screen - Suicide Last Done: 07/18/24 11:16
*General Assessment Last Done: 07/18/24 11:16
ED- Fall Risk Assessment Last Done: 07/18/24 11:45
*ED COVID-19 Vaccine History Last Done: 07/18/24 11:16
ED- Cardiac Assessment Last Done: 07/18/24 11:45
ED- Pulmonary Assessment Last Done: 07/18/24 11:45
Discharge Date and Time
Print Language: SYRIAC
[2024-07-18] MEDS: DUONEB 3 ML INH (11:50)
[2024-07-18 12:07] LABS: % Basophils 0.6 % (0-2); % Eosinophils 0.7 % (0-6); % Immature Granulocytes 0.7 % (0-0.5); % Lymphocytes 8.2 % (20.5-51.1); % Monocytes 10.2 % (1.7-9.3); % Neutrophils 79.6 % (42.2-75.2); Absolute Basophils 0.1 10^3/uL (0-0.2); Absolute Eosinophils 0.1 10^3/uL (0-0.7); Absolute Immature Granulocytes 0.1 10^3/uL (0-0.05); Absolute Lymphocytes 1.1 10^3/uL (1.2-3.4); Absolute Monocytes 1.4 10^3/uL (0.1-0.6); Absolute Neutrophils 11.1 10^3/uL (1.4-6.5); Hematocrit 38.8 % (37.0-47.0); Hemoglobin 12.8 g/dL (12.0-16.0); Mean Corpuscular Hgb 29.1 pg (27.0-31.0); Mean Corpuscular Volume 88.2 fL (81.0-99.0); Nucleated Red Blood Cells % 0 %; Platelet Count 293 10^3/uL (130-400)
[2024-07-18 12:15] LABS: Blood Urea Nitrogen 38 mg/dl (7-17); Calcium 10.4 mg/dl (8.4-10.2); Carbon Dioxide 26 mmol/L (22-30); Chloride 102 mmol/L (98-107); Estimated Creatinine Clearance 53 ml/min; Glucose 139 mg/dl (70-99); Potassium 4.1 mmol/L (3.5-5.1); Sodium 143 mmol/L (135-145); eGFR > 60.00
[2024-07-18 12:21] LABS: COVID-19 Antigen Negative (Negative)
[2024-07-18] MEDS: MORPHINE SULFATE 2 MG IV (12:22)
[2024-07-18 12:27] LABS: NT-proBNP 316 pg/ml; Troponin I < 0.012 ng/ml
[2024-07-18] MEDS: DECADRON 6 MG IV (13:29)
--- NOTE | 2024-07-18 14:20 | HPS.HSE ---
Family Physician
-
Family Physician: Noah Wolfe
Chief Complaint
-
difficulty breathing
History of Present Illness
84-year-old woman comen in with increased shortness of breath, wheezing, and left lateral chest pain. She fell 2 days ago. However, her shortness of breath became progressive overnight, with Increased pain, with coughing and breathing. She
reports No abdominal pain, no fever, no other complaints. She feels much better after pain meds, nebs and O2 in the ER.
Medical History
Past Medical History
Past Medical History: Reports Other
Additional Past Medical History:
Essential HTN,
Hypercholesterolemia,
Valvular disease
Neuropathy
Orthopedic surgery,
Tonsilectomy,
Urological surgery
Parathyroid removal
Hx of deep venous thrombosis
Hiatal hernia
Presence of IVC filter
Past Surgical History: Reports Other
Additional Past Surgical History:
See above
Social History
Tobacco: Non-smoker
Alcohol: None
Family History
Family History: Not pertinent
Allergies / Home Medications
Allergies reflects when Allergies were last updated in [facility].
Home Medications with original date entered in [facility]
Allergy/Medication List:
Allergies
Allergy/AdvReac Type Severity Reaction Status Date / Time
No Known Allergies Allergy Verified 07/18/24 11:20
Home Medications
omeprazole 20 mg capsule,delayed release 20 mg PO DAILY Gastrointestinal issue ##30 06/08/21
simvastatin 80 mg tablet 80 mg PO QPM High cholesterol #30 tabs 06/08/21
acetaminophen 325 mg tablet 650 mg PO BID pain 01/24/24
alprazolam 0.5 mg tablet 0.5 mg PO BIDPRN PRN anxiety 01/24/24
amitriptyline 25 mg tablet 25 mg PO HS Mental Health/Anxiety 01/24/24
ascorbic acid (vitamin C) 500 mg tablet (Vitamin C) 500 mg PO NOON Supplement 01/24/24
azelastine 205.5 mcg (0.15 %) nasal spray 2 spray intranasal BID Allergies 01/24/24
cholecalciferol (vitamin D3) 25 mcg (1,000 unit) tablet (Vitamin D3) 50 mcg PO NOON Supplement 01/24/24
cyclobenzaprine 5 mg tablet 5 mg PO HSPRN PRN muscle spasm 01/24/24
docusate sodium 100 mg capsule 100 mg PO BID Constipation 01/24/24
losartan 100 mg-hydrochlorothiazide 12.5 mg tablet 1 tab PO DAILY Blood Pressure 01/24/24
metoprolol succinate 25 mg tablet,extended release 24 hr 25 mg PO DAILY Blood Pressure 01/24/24
multivitamin 1 tab PO NOON Supplement 01/24/24
venlafaxine 150 mg capsule,extended release 24 hr (Effexor XR) 150 mg PO DAILY Mental Health/Anxiety 01/24/24
vibegron 75 mg tablet (Gemtesa) 75 mg PO DAILY bladder 01/24/24
vitamin A-vitamin C-vit E-min tablet (Ocutabs tablet) 1 tab PO NOON Supplement 01/24/24
apixaban 5 mg tablet (Eliquis) 5 mg PO BID Blood Clot Prevention/Tx #0 tabs 01/25/24
albuterol sulfate 90 mcg/actuation aerosol inhaler 2 inh inhalation R BID 07/18/24
calcium 600 mg (as carbonate)-vit D3 20 mcg (800 unit) chewable tablet (Caltrate plus D) 1 tab PO NOON 07/18/24
magnesium hydroxide 400 mg/5 mL oral suspension (Milk of Magnesia) 2,400 mg PO DAILYPRN PRN constipaiton 07/18/24
oxycodone 5 mg tablet 10 mg PO TID 07/18/24
zolpidem 10 mg tablet 10 mg PO HS 07/18/24
Review of Systems
-
History Source: Patient
A 12 point ROS was completed and negative except as noted: Yes
Physical Exam
Vital Signs
Vital Signs
Temp Pulse Resp BP Pulse Ox
98.1 F 116 19 140/89 94
07/18/24 11:16 07/18/24 13:45 07/18/24 13:45 07/18/24 13:00 07/18/24 13:45
Physical Exam
General: Well Developed, Well Nourished, No Apparent Distress, Comfortable and Conversant
Respiratory: Decreased Breath Sounds and Other (occasional cough)
Cardiac: S1/S2 and Regular Rhythm
GI: Soft, Non Tender and Non Distended
Musculoskeletal: No Clubbing, No Cyanosis and No Edema
Skin: Warm and Dry; No Rash or Jaundice
Neuro: Awake, Alert, Oriented and AO x 3
Psych: Calm
Laboratory Results
-
07/18/24 11:54
07/18/24 11:54
Laboratory Results
Troponin I < 0.012 ng/ml 07/18/24 11:54
Data Reviewed
-
Lab Data: Labs Reviewed by me
Impression/Plan
-
IMPRESSION:
84 woman who had a mechanical fall two days ago, then developed chest pain with deep breaths, cough. The side of her thorax hurts when she coughs.
WBC 14.0
BUN/Creat 38/0.8
Ca 10.4
PLAN:
1. Chest pain - Clinically likely cracked or bruised ribs
CT to confirm diagnosis and rule out PNA
Pain control
Nebs/O2
Cycle troponin
Monitor on telemetry overnight
2. BUN/Creat > 20, likely decreased PO intake
IV fluids
recheck in am
3. Elevated WBC - 14.0, likely from stress reaction
Check CT for PNA
Hold off abx unless there is clear PNA
Check daily for trend
4. Elevated Calcium - likely dehydration
Recheck after hydration
Full code
VCD for DVTp
--- NOTE | 2024-07-18 18:00 | PTCARENOTE ---
Received Pt from ED on stretcher. AAOx3 able to make needs known. Pt pulled over to bed from stretcher x2. Pure wick removed and attends applied, per patient and daughter at bedside she uses a cane at baseline prior to recent fall and bedside
commode encouraged vs purewick. Tele and SCD's applied, oriented to room and use of call strauss, denies pain/discomfort at this time.
[2024-07-18] MEDS: NSS 1000 IV (18:40)
[2024-07-18] MEDS: LIPITOR 40 MG PO (18:40)
[2024-07-18] MEDS: ROXICODONE 10 MG PO ×2 (18:40→21:44)
--- NOTE | 2024-07-18 20:00 | PTCARENOTE ---
Assumed care of patient from previous RN, patient recently arrived to unit from ED. Pulled from stretcher to bed per nursing reports. Patient with recent fall and left side pain, currently denies chest pain. Patient alert and oriented. VSS. IVFs
maintained. Patient requesting to go to the bathroom following change of shift. Patient did well standing to pivot with assist of one person to get to BSC -- purewick removed upon arrival to unit and attends placed. Patient wears peripad at
baseline -- placed patients own underwear and peripad following use of BSC, patient tolerating well. Patient noted to be extremely diaphoretic, she states that she is always this way, always has sweat pouring from her at all times. No one has been
able to figure it out, per patient account. Call strauss in reach, patient verbalizes understanding for use of call strauss. Will monitor.
[2024-07-18] MEDS: ProAIR HFA INHALER 2 PUFF INH (20:51)
[2024-07-18 21:35] LABS: Troponin I < 0.012 ng/ml
[2024-07-18] MEDS: AMBIEN 5 MG PO (21:44)
[2024-07-18] MEDS: ELAVIL 25 MG PO (21:44)
[2024-07-18] MEDS: TYLENOL 650 MG PO (21:44)
[2024-07-18] MEDS: COLACE 100 MG PO (21:44)
[2024-07-18] MEDS: ELIQUIS 5 MG PO (21:44)
[2024-07-19] VITALS (8 sets, daily range): BP systolic 113–144; BP diastolic 60–91; PULSE 76–77; O2SAT 96–100; BMI 30.4
[2024-07-19 02:28] LABS: Glucose - Point of Care 123 mg/dl (70-99)
--- NOTE | 2024-07-19 02:34 | PTCARENOTE ---
Patient woken up for scheduled troponin draw and EKG -- patient noted to be wheezing and again diaphoretic. Wheezing appears to be more audible at this time, slight exp wheeze noted to posterior. Shallow breathing with poor effort due to significant
rib pain with breathing -- pain has been controlled with scheduled medication, no PRNs requested at this time. She is currently c/o SOB, attributed to the rib pain. Patient states that she has had every breathing and lung test known performed with
no findings, and denies hx CHF. IVFs currently infusing at ordered rate of 150mls/hour, no crackles noted. Notified NAGI Vaughan -- request to perform blood glucose testing and orders placed for additional albuterol treatment. Blood glucose resulted
123. So far, troponin draws have been negative. Will reassess following treatment. For now, no further intervention. Will continue to monitor.
[2024-07-19 02:54] LABS: Troponin I < 0.012 ng/ml
[2024-07-19] MEDS: VENTOLIN NEBULES 1.25 MG INH ×2 (03:15→20:23)
[2024-07-19] MEDS: NSS 1000 IV (05:21)
[2024-07-19] MEDS: NSS IV (06:05)
[2024-07-19] MEDS: DETROL LA 4 MG PO (07:41)
[2024-07-19] MEDS: COLACE 100 MG PO ×2 (07:41→21:31)
[2024-07-19] MEDS: PROTONIX 40 MG PO (07:41)
[2024-07-19] MEDS: ROXICODONE 10 MG PO ×3 (07:41→21:32)
[2024-07-19] MEDS: TOPROL XL 25 MG PO (07:41)
[2024-07-19] MEDS: TYLENOL 1000 MG PO ×3 (07:42→21:32)
[2024-07-19] MEDS: HYZAAR 100-12.5 TABLET 1 TAB PO (07:42)
[2024-07-19] MEDS: EFFEXOR XR 150 MG PO (07:42)
[2024-07-19] MEDS: ELIQUIS 5 MG PO ×2 (07:42→21:32)
[2024-07-19 08:33] LABS: Glycohemoglobin (HgbA1c) 5.3 % (4.0-5.6)
--- NOTE | 2024-07-19 09:03 | W.PN.HOSP.TC ---
Today's Communication/Plan
-
Pain control with Tylenol/ Oxy
c/w Incentive spirometry, Nebs PRN
Blood work is pending
Resume BP meds.
PT/OT
Assessment / Plan
Assessment / Plan
Physical Exam
-
General: In pain while sitting in chair from her ribs, nasal O2
HEENT: Normocephalic and Atraumatic
Respiratory:Limited, some crackles. Poor efforts.
Cardiac: Regular Rhythm, S1/S2 and Murmur
GI: Soft, Nontender, Nondistended and Normal Bowel Sounds
Musculoskeletal: No Clubbing, No Cyanosis and No Edema
Neuro: Awake and Alert, she followed commands.
Psych: calm, not agitated.
# Acute hypoxic respiratory failure with respiratory distress, low SaO2, requiring 4 liters of oxygen due to acute on chronic atelectasis.
Former smoker.
PRN Inhaler.
negative troponin
Consult pulmonary doctor. Already on Eliquis. will f/w pulmonary
# history of fall at home s/p multiple left-sided rib fractures ( 3rd to ninth ribs)
Significant pain
c/w Tylenol TID and Oxycodone
# chronic pain syndrome with opioid dependency
polymyalgia rheumatica
# Anxiety
c/w Xanax PRN
# Hypercalcemia
repeat BMP
Pt reports decrease oral intake since the fall
#Aortic stenosis - mild on echo
#Primary HTN -
on BB
Resume home medications losartan/ HCTZ.
#HLD -
DVT - Eliquis.
Total time spent to see the patient, examine the patient on the floor, review data and lab results, discuss treatment plan with patient, nursing staff around 55 minutes
Anticipated Discharge: 24 - 48 hours
Subjective/Interval History
-
Date of Service: July 19, 2024
No chest pain
No sob
She denies abd pain
Objective Data
-
Labs:
Laboratory Results
07/19/24
06:00
WBC Pending
Hgb Pending
Hct Pending
Plt Count Pending
Sodium Pending
Potassium Pending
Chloride Pending
Carbon Dioxide Pending
BUN Pending
Creatinine Pending
Glucose Pending
Calcium Pending
Vital Signs:
Vital Signs
Temp Pulse Resp BP Pulse Ox
98.1 F 88 16 135/74 96
07/19/24 03:00 07/19/24 03:17 07/19/24 03:17 07/19/24 03:00 07/19/24 03:00
I&O
07/18/24 07/19/24 07/20/24
07:59 06:59 06:59
Intake Total
Balance
[2024-07-19 09:27] LABS: Hematocrit 34.6 % (37.0-47.0); Hemoglobin 11.5 g/dL (12.0-16.0); Mean Corp Hgb Conc. 33.2 g/dL (33.0-37.0); Mean Corpuscular Hgb 29.5 pg (27.0-31.0); Mean Corpuscular Volume 88.7 fL (81.0-99.0); Mean Platelet Volume 8.8 fL (7.4-10.4); Platelet Count 256 10^3/uL (130-400); Red Cell Dist. Width 13.8 % (11.5-14.5); White Blood Cell Count 9.8 10^3/uL (4.8-10.8)
[2024-07-19 09:35] LABS: Blood Urea Nitrogen 37 mg/dl (7-17); Calcium 9.3 mg/dl (8.4-10.2); Carbon Dioxide 27 mmol/L (22-30); Chloride 104 mmol/L (98-107); Estimated Creatinine Clearance 60 ml/min; Glucose 164 mg/dl (70-99); Potassium 4.2 mmol/L (3.5-5.1); Sodium 141 mmol/L (135-145); eGFR > 60.00
[2024-07-19] MEDS: ProAIR HFA INHALER 2 PUFF INH ×2 (09:38→20:18)
[2024-07-19 09:44] LABS: Troponin I < 0.012 ng/ml
[2024-07-19] MEDS: ORETIC 12.5 MG PO (10:09)
[2024-07-19] MEDS: COZAAR 100 MG PO (10:10)
--- NOTE | 2024-07-19 13:39 | CON.PUL ---
Consultation
Consultation Request
Date/Time Consultation Requested: 07/19
Date/Time Consultation Performed: 07/19
Reason for Consultation: Shortness of breath
Medical History
-
History of Present Illness:
History obtained from the patient and reviewing records. 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 She was evaluated in
the ED, chest x-ray was normal. She returned because of progressive shortness of breath and pleuritic pain. She was found to have multiple rib fractures per CT imaging. We are asked to comment on her pulmonary process. She denies nausea, emesis,
abdominal pain, lightheadedness. She fell in the middle of the night when she thought she was going to fall onto the bed and instead fell onto her left side. She describes chronic shortness of breath, can only walk about 20 feet she apparently has
had a cardiac workup which was negative, has never seen a record cutter.
.
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 History of chronic osteoarthritis, polymyalgia rheumatica, skin cancer including melanoma. History of partial hysterectomy, ectopic
Past Medical History
Past Medical History: None (See above)
Past Surgical History: None (See above)
Social History
Tobacco: Non-smoker
Alcohol: None
Drug: None
Personal:
Living: Alone
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
Family History
Family History: Other (3 children, 1 who from scleroderma related interstitial disease in the sixth decade. Brother with history of COPD)
Allergies / Home Medications
Allergies
Allergy/AdvReac Type Severity Reaction Status Date / Time
No Known Allergies Allergy Verified 07/18/24 11:20
Home Medications
�Medication �Instructions �Recorded �Confirmed �Last Taken �Type
omeprazole 20 mg capsule,delayed 20 mg PO DAILY Gastrointestinal 09/07/18/24 07/18/24 Rx
release issue ##30
simvastatin 80 mg tablet 80 mg PO QPM High cholesterol #30 06/08/21 07/18/24 07/17/24 Rx
tabs
acetaminophen 325 mg tablet 650 mg PO BID pain 01/24/24 07/18/24 07/18/24 History
alprazolam 0.5 mg tablet 0.5 mg PO BIDPRN PRN anxiety 01/24/24 07/18/24 Unknown History
amitriptyline 25 mg tablet 25 mg PO HS Mental Health/Anxiety 01/24/24 07/18/24 07/17/24 History
ascorbic acid (vitamin C) 500 mg 500 mg PO NOON Supplement 01/24/24 07/18/24 01/24/24 08:00 History
tablet (Vitamin C)
azelastine 205.5 mcg (0.15 %) 2 spray intranasal BID Allergies 01/24/24 07/18/24 07/18/24 History
nasal spray
cholecalciferol (vitamin D3) 25 50 mcg PO NOON Supplement 01/24/24 07/18/24 01/24/24 08:00 History
mcg (1,000 unit) tablet (Vitamin
D3)
cyclobenzaprine 5 mg tablet 5 mg PO HSPRN PRN muscle spasm 01/24/24 07/18/24 Unknown History
docusate sodium 100 mg capsule 100 mg PO BID Constipation 01/24/24 07/18/24 07/18/24 History
losartan 100 1 tab PO DAILY Blood Pressure 01/24/24 07/18/24 07/18/24 History
mg-hydrochlorothiazide 12.5 mg
tablet
metoprolol succinate 25 mg 25 mg PO DAILY Blood Pressure 01/24/24 07/18/24 07/18/24 History
tablet,extended release 24 hr
multivitamin 1 tab PO NOON Supplement 01/24/24 07/18/24 01/24/24 08:00 History
venlafaxine 150 mg 150 mg PO DAILY Mental 01/24/24 07/18/24 07/18/24 History
capsule,extended release 24 hr Health/Anxiety
(Effexor XR)
vibegron 75 mg tablet (Gemtesa) 75 mg PO DAILY bladder 01/24/24 07/18/24 07/18/24 History
vitamin A-vitamin C-vit E-min 1 tab PO NOON Supplement 01/24/24 07/18/24 01/24/24 08:00 History
tablet (Ocutabs tablet)
apixaban 5 mg tablet (Eliquis) 5 mg PO BID Blood Clot 01/25/24 07/18/24 07/18/24 Rx
Prevention/Tx #0 tabs
albuterol sulfate 90 mcg/actuation 2 inh inhalation R BID 07/18/24 07/18/24 07/18/24 History
aerosol inhaler Lung/Breathing Issues
calcium 600 mg (as carbonate)-vit 1 tab PO NOON Supplement 07/18/24 07/18/24 Unknown History
D3 20 mcg (800 unit) chewable
tablet (Caltrate plus D)
magnesium hydroxide 400 mg/5 mL 2,400 mg PO DAILYPRN PRN 07/18/24 07/18/24 07/17/24 History
oral suspension (Milk of Magnesia) constipaiton
oxycodone 5 mg tablet 10 mg PO TID Pain 07/18/24 07/18/24 07/18/24 History
40 mg
zolpidem 10 mg tablet 10 mg PO HS INSOMNIA 07/18/24 07/18/24 07/17/24 History
Review of Systems
-
All other systems: Negative unless noted
Vitals / Labs / Diagnostic Testing
Vital Signs
Temp Pulse Resp BP Pulse Ox
98.8 F 85 17 128/62 96
07/19/24 11:26 07/19/24 11:26 07/19/24 11:26 07/19/24 11:26 07/19/24 11:26
Lab Data
07/19/24 09:11
07/19/24 09:11
Microbiology
07/18/24 11:54 Nasal Swab Influenza Types A & B (CHRISS) - Final
Negative for Influenza A & B, NAAT
Negative results must be combined with clinical observations
and patient history.
Nucleic Acid Amplification test (NAAT)performed on the
[employer] platform.
Diagnostic Testing:
Physical Exam
-
HEENT: Normocephalic and Anicteric
Cardiovascular: S1/S2, Regular Rhythm, Murmur (2/6 systolic murmur), Rub (n) and Peripheral Edema (n)
Respiratory: Wheeze (n), Rales (Few scattered), Rhonchi (n), Non-Labored Respirations and Other (Mild splinting)
GI: Soft, Non Distended (Obese) and Non Tender
Neurology: Awake, Alert and No Motor Deficits (Able to sit up without assistance)
Skin: Other (Few scattered bruises)
General: Comfortable
Assessment
-
84-year-old female with history of aortic stenosis, chronic shortness of breath, chronic back pain with recent fall, multiple rib fractures, shortness of breath. We are asked to help from pulmonary standpoint
Mechanical fall, left chest contusion
multiple left-sided rib fractures
Mild bilateral interstitial changes per CT imaging
Crackles on exam
Suspect component of splinting
Acute respiratory insufficiency, secondary to splinting/rib fractures
Mild aortic stenosis, valve area 1.6 cm�
Mild crackles on exam
Conditions present prior to admission
History of PE/DVT, 2020
Status post IVC filter
Hospitalized at [facility]
Post hip replacement
History of fall, left hip fracture, KYLIE
Complications requiring surgery 6 months later
Hiatal hernia
Family history of scleroderma interstitial lung disease (daughter)
Suspected sleep disorder, snoring
Plan/recommendations
At this time, patient appears to be comfortable. She is splinting on exam but in general appears in no respiratory distress. There are mild crackles. I suspect this is from mild interstitial changes/splinting
Moving forward
Continue with supportive care
Pain control, minimize heavy lifting, overexertion for the next 6 weeks
Patient on chronic Eliquis therapy for history of PE/DVT
Patient also has chronic pain syndrome, chronic back pain on oxycodone as outpatient
Will likely require bowel regimen. Follow
Patient describes chronic dyspnea
Suspect this is multifactorial
May benefit from outpatient pulmonary follow-up. Information left in chart
Reviewed with patient and son at bedside
We will follow-up
[2024-07-19] MEDS: MORPHINE SULFATE 2 MG IV (14:18)
[2024-07-19] MEDS: LIPITOR 40 MG PO (17:09)
[2024-07-19] MEDS: ELAVIL 25 MG PO (21:32)
[2024-07-19] MEDS: AMBIEN 5 MG PO (21:32)
[2024-07-20 03:37] VITALS: BP 143/76
[2024-07-20 05:54] LABS: Hematocrit 34.8 % (37.0-47.0); Hemoglobin 11.2 g/dL (12.0-16.0); Mean Corp Hgb Conc. 32.2 g/dL (33.0-37.0); Mean Corpuscular Hgb 28.9 pg (27.0-31.0); Mean Corpuscular Volume 89.7 fL (81.0-99.0); Mean Platelet Volume 8.8 fL (7.4-10.4); Platelet Count 283 10^3/uL (130-400); Red Blood Cell Count 3.88 10^6/uL (4.20-5.40); Red Cell Dist. Width 13.7 % (11.5-14.5); White Blood Cell Count 9.1 10^3/uL (4.8-10.8)
[2024-07-20 06:00] VITALS: BMI 31.1
[2024-07-20 06:18] LABS: ALT (SGPT) 15 U/L (0-35); AST (SGOT) 23 U/L (14-36); Albumin 3.4 g/dl (3.5-5.0); Alkaline Phosphatase 61 U/L (38-126); Blood Urea Nitrogen 34 mg/dl (7-17); Calcium 9.3 mg/dl (8.4-10.2); Carbon Dioxide 28 mmol/L (22-30); Chloride 102 mmol/L (98-107); Estimated Creatinine Clearance 53 ml/min; Glucose 94 mg/dl (70-99); Potassium 4.5 mmol/L (3.5-5.1); Sodium 140 mmol/L (135-145); Total Bilirubin 0.3 mg/dl (0.2-1.3); Total Protein 6.2 g/dl (6.3-8.2); eGFR > 60.00
[2024-07-20 07:20] VITALS: BP 142/83
[2024-07-20] MEDS: PROTONIX 40 MG PO (07:21)
[2024-07-20] MEDS: DETROL LA 4 MG PO (07:21)
[2024-07-20] MEDS: HYZAAR 100-12.5 TABLET 1 TAB PO (07:22)
[2024-07-20] MEDS: ELIQUIS 5 MG PO ×2 (07:22→21:27)
[2024-07-20] MEDS: TOPROL XL 25 MG PO (07:22)
[2024-07-20] MEDS: TYLENOL 1000 MG PO ×3 (07:22→21:28)
[2024-07-20] MEDS: EFFEXOR XR 150 MG PO (07:23)
[2024-07-20] MEDS: ROXICODONE 10 MG PO ×3 (07:23→21:27)
[2024-07-20] MEDS: COLACE 100 MG PO ×2 (07:23→21:26)
[2024-07-20] MEDS: ProAIR HFA INHALER 2 PUFF INH (07:41)
--- NOTE | 2024-07-20 07:50 | W.PN.PUL3 ---
Today's Communication / Plan
-
Trial of abdominal binder to see if this helps her cough without left-sided rib pain
Pain control
Change albuterol BID to DuoNebs QID
Mucolytics + antitussants
PT/OT - rec'd home health
Pulmonary service will continue to follow along while she remains hospitalized and then will arrange for outpatient follow up with repeat CT chest in 4-6 weeks to re-assess her interstitial changes
Assessment
-
84-year-old female with history of aortic stenosis, chronic shortness of breath, chronic back pain with recent fall, multiple rib fractures, shortness of breath. We are asked to help from pulmonary standpoint
Impression:
Mechanical fall, left-sided chest contusion
multiple left-sided rib fractures
Mild bilateral interstitial changes per CT imaging
Crackles on exam
Suspect component of splinting
Left lower lobe atelectasis
Acute respiratory insufficiency, secondary to splinting/rib fractures
Mild aortic stenosis, valve area 1.6 cm� per TTE from 01/24/2024
Bilateral crackles on exam
Conditions present prior to admission
History of PE/DVT, 2020
Status post IVC filter
Hospitalized at [facility]
Post hip replacement
History of fall, left hip fracture, KYLIE
Complications requiring surgery 6 months later
Hiatal hernia
Family history of scleroderma interstitial lung disease (daughter)
Suspected sleep disorder, snoring
Plan/recommendations
At this time, patient appears to be comfortable. She is splinting on exam but in general appears in no respiratory distress. There are crackles on exam bilaterally. I suspect this is from atelectasis in the setting of splinting, however unable to
rule out an underlying ILD process.
-Will need to repeat imaging with CT chest without contrast in about 4 to 6 weeks to follow-up these interstitial changes to resolution or assess for persistence/worsening - she did have some mild subpleural reticular changes seen on prior CTA
chest in 05/2021, and appeared stable, improved on last CT chest from 01/24/2024
Moving forward
Continue with supportive care
Pain control, minimize heavy lifting, overexertion for the next 6 weeks
Will apply an abdominal binder around her chest to see if this helps with her pain and help improve her expectoration of her mucus
Start Acapella + Mucinex
Antitussants with codeine syrup
Patient on chronic Eliquis therapy for history of PE/DVT
Patient also has chronic pain syndrome, chronic back pain on oxycodone as outpatient
Will likely require bowel regimen
Patient describes chronic dyspnea
Suspect this is multifactorial
May benefit from outpatient pulmonary follow-up and possibly pulmonary rehab. Information left in chart
Reviewed with patient and son at bedside
We will continue to follow along while she remains hospitalized.
Total time spent today was 38 minutes for this encounter. Time includes reviewing laboratory test/imaging results, reviewing pertinent medical records, obtaining and reviewing medical history, performing an appropriate exam, ordering medications,
tests and procedures. Time also includes documentation of this encounter, coordinating patient care and communicating with other healthcare professionals. Total time does not include separately billed tests performed on this date of service.
Subjective Data
-
Date of Service:
Date of Service: July 20, 2024
Chief Complaint: Pulmonary Follow Up
Subjective:
Patient seen and evaluated today at bedside. Currently on 2 L/min saturating 97%. Afebrile overnight. She says she still has lots of pain when taking deep breaths or when coughing, with pain located on the left side of her ribs. She has phlegm
as well and that she is having great difficulty bringing up as a result of this. Currently denies MORA, abdominal pain, nausea, fevers or chills.
Review of Systems
General: Other (Negative unless mentioned above)
Objective Data
Data Reviewed
Vital Signs / I&O / Oxygen:
Vital Signs
Temp Pulse Resp BP Pulse Ox
98.1 F 94 18 142/83 94
07/20/24 07:20 07/20/24 07:48 07/20/24 07:48 07/20/24 07:20 07/20/24 07:48
Intake and Output
07/19/24 07/20/24 07/21/24
06:59 06:59 06:59
Intake Total 3660 / 3660
Balance 3660 / 3660
SaO2 94
Nasal Cannula flow liters per 2
minute
Physical Exam
General: Respiratory Distress (negative), Comfortable, Pain (left sided ribs), Chills (negative) and Sweats (negative)
HEENT: Anicteric
Cardiovascular: S1-S2, Murmur (YANET at RUSB, grade III/) and Peripheral Edema (negative)
Respiratory: Wheeze (negative), Crackles (Bilaterally), Rhonchi (negative), Non-Labored Respirations, Other (Diminished breath sounds at left base) and Other
GI: Soft, Non Distended, Non Tender and Normal Bowel Sounds
Neurology: Awake, Alert and Tremors (negative)
Skin: Warm, Dry, Cyanosis (negative) and Jaundice (negative)
Labs/Micro/Reports
Lab Data
07/20/24 05:17
07/20/24 05:17
Microbiology
07/18/24 11:54 Nasal Swab Influenza Types A & B (CHRISS) - Final
Negative for Influenza A & B, NAAT
Negative results must be combined with clinical observations
and patient history.
Nucleic Acid Amplification test (NAAT)performed on the
[employer] platform.
[2024-07-20 11:03] VITALS: BP 136/78
--- NOTE | 2024-07-20 12:05 | CM ---
Alert awake oriented who lives with Randall and Dgt Nisreen in a one story home with 1 step to enter. She is independent in driving and all ADLS She uses a walker . She is on oxygen and oxygen test shows she need home oxygen. [facility]. Enma
to be contacted to start process of setting up home oxygen . Pt requested [facility] Misty Franco TT order for [facility].
No hx of VN /SNF.
Pharmacy [facility]
PCP Dr Sweeney
PLAN Home with [facility] with Home oxygen
--- NOTE | 2024-07-20 12:37 | VNURNOTE ---
Home Health Liaison met with patient at bedside to discuss [facility] nurse/therapy, visits, schedule and homebound status. Patient is agreeable and understands that visits at home will be 2-3 x per week to assess and teach medical management. New home
02 w/[employer].
[facility] brochure provided with contact information. Patient is aware that [facility] will contact them for start of care in 1-2 days after discharge from .
[facility] referral completed in [facility].
--- NOTE | 2024-07-20 14:48 | W.PN.HOSP.TC ---
Today's Communication/Plan
-
pain control
o2, wean o2 as tolerated
pulm recs
repeat cxr
Assessment / Plan
Assessment / Plan
Physical Exam
-
General: In pain while sitting in chair from her ribs, nasal O2
HEENT: Normocephalic and Atraumatic
Respiratory:Limited, some crackles. Poor efforts.
Cardiac: Regular Rhythm, S1/S2 and Murmur
GI: Soft, Nontender, Nondistended and Normal Bowel Sounds
Musculoskeletal: No Clubbing, No Cyanosis and No Edema
Neuro: Awake and Alert, she followed commands.
Psych: calm, not agitated.
# Acute hypoxic respiratory failure with respiratory distress, low SaO2, requiring now 2 (down from 4 L) of oxygen due to acute on chronic atelectasis.
Former smoker.
PRN Inhaler.
negative troponin
Consult pulmonary doctor. Already on Eliquis. will f/w pulmonary
CXR today
Patient is in need of oxygen at 2 liters/minute via nasal cannula continuously due to pulse oximetry of 88% on room air at rest. Oxygen will help to improve hypoxemia. Patient is mobile within the home. DuoNeb therapy has been tried and is
ineffective in treating hypoxemia related symptoms. Oxygen is needed to improve symptoms.
# history of fall at home s/p multiple left-sided rib fractures ( 3rd to ninth ribs)
Significant pain
c/w Tylenol TID and Oxycodone
# chronic pain syndrome with opioid dependency
polymyalgia rheumatica
# Anxiety
c/w Xanax PRN
# Hypercalcemia
repeat BMP
Pt reports decrease oral intake since the fall
#Aortic stenosis - mild on echo
#Primary HTN -
on BB
Resume home medications losartan/ HCTZ.
#HLD -
DVT - Eliquis.
Total time spent on today's encounter was 55 minutes which included time spent in counseling the patient/family regarding diagnosis and treatment plan as listed above, goals of care, and symptom management. Case was discussed with nursing staff,
specialists, and care coordinators/case management. All labs and imaging personally reviewed by me. Remainder the time spent in detailed review of previous records, lab data, imaging, and other medical provider documentation.
Anticipated Discharge: Within 24 hours
Subjective/Interval History
-
Date of Service: July 20, 2024
Mildly hypoxic, pain is improved
Objective Data
-
Labs:
Laboratory Results
07/20/24
05:17
WBC 9.1
Hgb 11.2 L
Hct 34.8 L
Plt Count 283
Sodium 140
Potassium 4.5
Chloride 102
Carbon Dioxide 28
BUN 34 H
Creatinine 0.8
Glucose 94
Calcium 9.3
Total Bilirubin 0.3
AST 23
ALT 15
Alkaline Phosphatase 61
Vital Signs:
Vital Signs
Temp Pulse Resp BP Pulse Ox
97.3 F 86 18 136/78 97
07/20/24 11:03 07/20/24 11:03 07/20/24 11:03 07/20/24 11:03 07/20/24 11:03
I&O
07/19/24 07/20/24 07/21/24
06:59 06:59 06:59
Intake Total 3660 / 3660
Balance 3660 / 3660
Review of Systems
-
History Source: Patient
All other systems: Not reviewed unless documented
Physical Exam
-
General: Well Developed, Well Nourished and No Apparent Distress
HEENT: Normocephalic and Atraumatic
Respiratory: Clear to Auscultation; Negative Wheezes or Rhonchi
Cardiac: Regular Rhythm, S1/S2 and Murmur
GI: Soft, Nontender, Nondistended and Normal Bowel Sounds
Musculoskeletal: No Clubbing, No Cyanosis and No Edema
Neuro: Awake and Alert
Data Reviewed
-
CT Scan: Image personally visualized and interpreted and Report Reviewed by me
Labs: Labs Reviewed by me
[2024-07-20] MEDS: MORPHINE SULFATE 2 MG IV (14:54)
[2024-07-20 15:30] VITALS: BP 139/69
[2024-07-20] MEDS: LIPITOR 40 MG PO (18:04)
[2024-07-20] MEDS: DUONEB 3 ML INH (19:18)
[2024-07-20] MEDS: MUCINEX 1200 MG PO (21:27)
[2024-07-20] MEDS: AMBIEN 5 MG PO (21:27)
[2024-07-20] MEDS: ELAVIL 25 MG PO (21:27)
[2024-07-20 23:45] VITALS: BP 130/73
[2024-07-21 06:00] VITALS: BMI 31.0
[2024-07-21] MEDS: MORPHINE SULFATE 2 MG IV (06:20)
[2024-07-21 06:28] LABS: Hematocrit 33.7 % (37.0-47.0); Hemoglobin 10.9 g/dL (12.0-16.0); Mean Corp Hgb Conc. 32.3 g/dL (33.0-37.0); Mean Corpuscular Hgb 28.5 pg (27.0-31.0); Mean Corpuscular Volume 88.2 fL (81.0-99.0); Mean Platelet Volume 8.8 fL (7.4-10.4); Platelet Count 289 10^3/uL (130-400); Red Blood Cell Count 3.82 10^6/uL (4.20-5.40); Red Cell Dist. Width 13.5 % (11.5-14.5); White Blood Cell Count 8.8 10^3/uL (4.8-10.8)
[2024-07-21 06:54] LABS: Blood Urea Nitrogen 25 mg/dl (7-17); Calcium 8.9 mg/dl (8.4-10.2); Carbon Dioxide 28 mmol/L (22-30); Chloride 100 mmol/L (98-107); Estimated Creatinine Clearance 53 ml/min; Glucose 88 mg/dl (70-99); Sodium 139 mmol/L (135-145); eGFR > 60.00
[2024-07-21] MEDS: DUONEB 3 ML INH ×2 (07:39→11:18)
[2024-07-21 07:40] VITALS: BP 130/59
[2024-07-21] MEDS: PROTONIX 40 MG PO (07:47)
[2024-07-21] MEDS: DETROL LA 4 MG PO (07:48)
[2024-07-21] MEDS: ROXICODONE 10 MG PO (07:48)
[2024-07-21] MEDS: HYZAAR 100-12.5 TABLET 1 TAB PO (07:48)
[2024-07-21] MEDS: TYLENOL 1000 MG PO (07:48)
[2024-07-21] MEDS: MUCINEX 1200 MG PO (07:48)
[2024-07-21] MEDS: TOPROL XL 25 MG PO (07:48)
[2024-07-21] MEDS: COLACE 100 MG PO (07:49)
[2024-07-21] MEDS: EFFEXOR XR 150 MG PO (07:49)
[2024-07-21] MEDS: ELIQUIS 5 MG PO (07:49)
--- NOTE | 2024-07-21 09:22 | W.PN.PUL3 ---
Today's Communication / Plan
-
Pain control
DC home on DuoNebs prn
Mucolytics + antitussants
PT/OT - rec'd home health
Repeat imaging as an outpatient with CT chest w/o contrast (HRCT) to assess for continued interstitial changes vs resolution
Patient being prepared for discharge home today. No additional recommendations at this time. Pulmonary service will now sign off. Please reconsult if there are any additional questions/concerns, or if patient's respiratory status deteriorates.
Assessment
-
84-year-old female with history of aortic stenosis, chronic shortness of breath, chronic back pain with recent fall, multiple rib fractures, shortness of breath. We are asked to help from pulmonary standpoint
Impression:
Mechanical fall, left-sided chest contusion
multiple left-sided rib fractures
Mild bilateral interstitial changes per CT imaging
Crackles on exam
Suspect component of splinting
Left lower lobe atelectasis
Acute respiratory insufficiency, secondary to splinting/rib fractures
Mild aortic stenosis, valve area 1.6 cm� per TTE from 01/24/2024
Bilateral crackles on exam
Conditions present prior to admission
History of PE/DVT, 2020
Status post IVC filter
Hospitalized at [place]
Post hip replacement
History of fall, left hip fracture, KYLIE
Complications requiring surgery 6 months later
Hiatal hernia
Family history of scleroderma interstitial lung disease (daughter)
Suspected sleep disorder, snoring
Plan/recommendations
At this time, patient appears to be comfortable. She is splinting on exam but in general appears in no respiratory distress. There are crackles on exam bilaterally, which have improved. I suspect this is from atelectasis in the setting of
splinting, however unable to rule out an underlying ILD process.
-Will need to repeat imaging with CT chest without contrast in about 4 to 6 weeks, maximum 3 months to follow-up these interstitial changes to resolution or assess for persistence/worsening - she did have some mild subpleural reticular changes seen
on prior CTA chest in 05/2021, and appeared stable, improved on last CT chest from 01/24/2024
Moving forward
Continue with supportive care
Pain control, minimize heavy lifting, overexertion for the next 6 weeks
Tried applying of an abdominal binder to see if this helped her pain but it actually worsened her pain - stop binder now
Continue Acapella + Mucinex
DuoNebs --> DC home with this to be used prn
Antitussants with codeine syrup
Patient on chronic Eliquis therapy for history of PE/DVT
Patient also has chronic pain syndrome, chronic back pain on oxycodone as outpatient
Continue bowel regimen
Patient describes chronic dyspnea
Suspect this is multifactorial
May benefit from outpatient pulmonary follow-up and possibly pulmonary rehab. Information left in chart
Dr. Park previously reviewed with patient and son at bedside
Patient being prepared for discharge home today. No additional recommendations at this time. Pulmonary service will now sign off. Thank you for allowing us to be involved in the care of this patient. Please reconsult if there are any additional
questions/concerns, or if patient's respiratory status deteriorates.
Total time spent today was 28 minutes for this encounter. Time includes reviewing laboratory test/imaging results, reviewing pertinent medical records, obtaining and reviewing medical history, performing an appropriate exam, ordering medications,
tests and procedures. Time also includes documentation of this encounter, coordinating patient care and communicating with other healthcare professionals. Total time does not include separately billed tests performed on this date of service.
Subjective Data
-
Date of Service:
Date of Service: July 21, 2024
Chief Complaint: Pulmonary Follow Up
Subjective:
Patient was seen and evaluated this morning. Still having left-sided rib pain but it is improved. The abdominal binder did not help at all - she said it made the pain worse. She is currently on room air breathing comfortably. Being prepared for
discharge home today. She denies MORA, abdominal pain, nausea, fevers or chills.
Review of Systems
General: Other (Negative unless mentioned above)
Objective Data
Data Reviewed
Vital Signs / I&O / Oxygen:
Vital Signs
Temp Pulse Resp BP Pulse Ox
98.2 F 91 17 130/59 98
07/21/24 07:40 07/21/24 07:41 07/21/24 07:41 07/21/24 07:40 07/21/24 07:41
Intake and Output
07/20/24 07/21/24 07/22/24
06:59 06:59 06:59
Intake Total 3660 / 3660 840 / 840
Balance 3660 / 3660 840 / 840
SaO2 98
Nasal Cannula flow liters per 3
minute
Physical Exam
General: Respiratory Distress (negative), Comfortable, Pain (left sided ribs), Chills (negative) and Sweats (negative)
HEENT: Normocephalic and Anicteric
Cardiovascular: S1-S2, Murmur (YANET at RUSB, grade III/) and Peripheral Edema (negative)
Respiratory: Wheeze (negative), Crackles (Bibasilar to mid lung regions bilaterally), Rhonchi (negative), Non-Labored Respirations, Other (Diminished breath sounds at left base) and Other
GI: Soft, Non Distended, Non Tender and Normal Bowel Sounds
Neurology: AO x 3 and Tremors (negative)
Skin: Warm, Dry, Cyanosis (negative) and Jaundice (negative)
Labs/Micro/Reports
Lab Data
07/21/24 05:34
07/21/24 05:34
Microbiology
07/18/24 11:54 Nasal Swab Influenza Types A & B (CHRISS) - Final
Negative for Influenza A & B, NAAT
Negative results must be combined with clinical observations
and patient history.
Nucleic Acid Amplification test (NAAT)performed on the
[employer] platform.
--- NOTE | 2024-07-21 09:52 | W.PN.HOSP.TC ---
Addendum entered and electronically signed by Eduardo Coppola MD 07/23/24 15:51:
[id number]
Addendum entered and electronically signed by Eduardo Coppola MD 07/23/24 15:10:
Respiratory failure is/was present and is a clinical diagnosis based on respiratory distress, tachypnea, hypoxia requiring O2, mild crackles
Original Note:
Today's Communication/Plan
-
wean o2 outpatient
CT chest in 4-6 weeks with pulmonary
f/u with pulmonary in 1-2 months
pain control
incentive viola
abd binder
no strenous activity, heavy lifting, or overexertion for at least 6 weeks
F/u PCP, Pulmonary outpatient
Assessment / Plan
Assessment / Plan
Physical Exam
-
General: In pain while sitting in chair from her ribs, nasal O2
HEENT: Normocephalic and Atraumatic
Respiratory:Limited, some crackles. Poor efforts.
Cardiac: Regular Rhythm, S1/S2 and Murmur
GI: Soft, Nontender, Nondistended and Normal Bowel Sounds
Musculoskeletal: No Clubbing, No Cyanosis and No Edema
Neuro: Awake and Alert, she followed commands.
Psych: calm, not agitated.
# Acute hypoxic respiratory failure with respiratory distress, low SaO2, requiring now 2 (down from 4 L) of oxygen due to acute on chronic atelectasis and splinting
Former smoker.
PRN Inhaler.
negative troponin
pulmonary on board
CXR stable
CT chest in 4-6 weeks with pulmonary
f/u with pulmonary in 1-2 months
pain control
incentive viola
abd binder
no strenous activity, heavy lifting, or overexertion for at least 6 weeks
Patient is in need of oxygen at 2 liters/minute via nasal cannula continuously due to pulse oximetry of 88% on room air at rest. Oxygen will help to improve hypoxemia. Patient is mobile within the home. DuoNeb therapy has been tried and is
ineffective in treating hypoxemia related symptoms. Oxygen is needed to improve symptoms.
# history of fall at home s/p multiple left-sided rib fractures ( 3rd to ninth ribs)
Significant pain
c/w Tylenol TID and Oxycodone
# chronic pain syndrome with opioid dependency
polymyalgia rheumatica
# Anxiety
c/w Xanax PRN
#Aortic stenosis - mild on echo in 02/06
#Primary HTN -
on BB
Resume home medications losartan/ HCTZ.
#HLD -
DVT - Eliquis.
More than 30 minutes spent in discharge including
Final examination of the patient
Summarizing hospital stay
Instructions for continuing care to all relevant caregivers
Preparation of discharge records, prescriptions, and referral forms
Total time spent (35 in minutes):
Anticipated Discharge: Today
Subjective/Interval History
-
Date of Service: July 21, 2024
Pain has improved, able to take deeper breaths although still moderately controlled with p.o. oxycodone
Objective Data
-
Labs:
Laboratory Results
07/21/24
05:34
WBC 8.8
Hgb 10.9 L
Hct 33.7 L
Plt Count 289
Sodium 139
Potassium 4.0
Chloride 100
Carbon Dioxide 28
BUN 25 H
Creatinine 0.8
Glucose 88
Calcium 8.9
Vital Signs:
Vital Signs
Temp Pulse Resp BP Pulse Ox
98.2 F 91 17 130/59 98
07/21/24 07:40 07/21/24 07:41 07/21/24 07:41 07/21/24 07:40 07/21/24 07:41
I&O
07/20/24 07/21/24 07/22/24
06:59 06:59 06:59
Intake Total 3660 / 3660 840 / 840
Balance 3660 / 3660 840 / 840
Review of Systems
-
History Source: Patient
All other systems: Not reviewed unless documented
Physical Exam
-
General: Well Developed, Well Nourished and No Apparent Distress
HEENT: Normocephalic and Atraumatic
Respiratory: Clear to Auscultation; Negative Wheezes or Rhonchi
Cardiac: Regular Rhythm, S1/S2 and Murmur
GI: Soft, Nontender, Nondistended and Normal Bowel Sounds
Musculoskeletal: No Clubbing, No Cyanosis and No Edema
Neuro: Awake and Alert
Data Reviewed
-
Diagnostic Radiology: Image personally visualized and interpreted and Report Reviewed by me
CT Scan: Image personally visualized and interpreted and Report Reviewed by me
Labs: Labs Reviewed by me
--- NOTE | 2024-07-21 10:00 | W.DS.TRANS ---
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
-
Discharge Instructions:
Discharge Diagnosis/Procedures
# Acute hypoxic respiratory failure
#fall at home s/p multiple left-sided rib
fractures ( 3rd to ninth ribs)
Diet Low Cholesterol,Low Fat
Activity No strenuous activity,Other activity
Additional Activity Pain control, minimize heavy lifting,
overexertion for the next 6 weeks
Others Tests repeat CT chest in 4-6 weeks
Instructions: Rib Fracture or Bruised Rib ED
Stand-Alone Forms:
Changes to Home Medications: Yes
Discharge Medications:
DC Medications w/original date entered in [facility]
omeprazole 20 mg capsule,delayed release 20 mg PO DAILY Gastrointestinal issue ##30 06/08/21
simvastatin 80 mg tablet 80 mg PO QPM High cholesterol #30 tabs 06/08/21
alprazolam 0.5 mg tablet 0.5 mg PO BIDPRN PRN anxiety 01/24/24
amitriptyline 25 mg tablet 25 mg PO HS Mental Health/Anxiety 01/24/24
ascorbic acid (vitamin C) 500 mg tablet (Vitamin C) 500 mg PO NOON Supplement 01/24/24
azelastine 205.5 mcg (0.15 %) nasal spray 2 spray intranasal BID Allergies 01/24/24
cholecalciferol (vitamin D3) 25 mcg (1,000 unit) tablet (Vitamin D3) 50 mcg PO NOON Supplement 01/24/24
cyclobenzaprine 5 mg tablet 5 mg PO HSPRN PRN muscle spasm 01/24/24
docusate sodium 100 mg capsule 100 mg PO BID Constipation 01/24/24
losartan 100 mg-hydrochlorothiazide 12.5 mg tablet 1 tab PO DAILY Blood Pressure 01/24/24
metoprolol succinate 25 mg tablet,extended release 24 hr 25 mg PO DAILY Blood Pressure 01/24/24
multivitamin 1 tab PO NOON Supplement 01/24/24
venlafaxine 150 mg capsule,extended release 24 hr (Effexor XR) 150 mg PO DAILY Mental Health/Anxiety 01/24/24
vibegron 75 mg tablet (Gemtesa) 75 mg PO DAILY bladder 01/24/24
vitamin A-vitamin C-vit E-min tablet (Ocutabs tablet) 1 tab PO NOON Supplement 01/24/24
apixaban 5 mg tablet (Eliquis) 5 mg PO BID Blood Clot Prevention/Tx #0 tabs 01/25/24
albuterol sulfate 90 mcg/actuation aerosol inhaler 2 inh inhalation R BID Lung/Breathing Issues 07/18/24
calcium 600 mg (as carbonate)-vit D3 20 mcg (800 unit) chewable tablet (Caltrate plus D) 1 tab PO NOON Supplement 07/18/24
magnesium hydroxide 400 mg/5 mL oral suspension (Milk of Magnesia) 2,400 mg PO DAILYPRN PRN constipaiton 07/18/24
oxycodone 5 mg tablet 10 mg PO TID Pain 07/18/24
zolpidem 10 mg tablet 10 mg PO HS INSOMNIA 07/18/24
acetaminophen 500 mg tablet (Tylenol Extra Strength) 1,000 mg (2 x 500 mg) PO TID 7 days #42 tabs 07/21/24
guaifenesin 600 mg tablet, extended release 12 hr 1,200 mg (2 x 600 mg) PO Q12 7 days #28 tabs 07/21/24
Home Medication Changes
acetaminophen 500 mg tablet (Tylenol Extra Strength) 1,000 mg (2 x 500 mg) PO TID 7 days #42 tabs 07/21/24
guaifenesin 600 mg tablet, extended release 12 hr 1,200 mg (2 x 600 mg) PO Q12 7 days #28 tabs 07/21/24
Pending Results: No
--- NOTE | 2024-07-21 10:00 | CM ---
Addendum entered by Fani Espinoza RN 07/21/24 14:25:
ordered Nebulizer. 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 aware to send Neb meds script to her pharmacy. Spoke with [facility] they have Nebulizer.Pt said she will have her a nebulizer at [facility].
PLAN Home with [facility]
Addendum entered by Fani Espinoza RN 07/21/24 13:37:
As per Resp therapist pt ambulated this am and did not desat. made aware. Angela from [facility] notified to cancel oxygen order.
Pt on room air.
PLAn Home with [facility]
Original Note:
entered order for discharge.
Pt remains on oxygen 3 liters Pox 98%.
Clinical and order sent to [facility] .Portable oxygen tank to be delivered to room at 12:30 today.
Family to drive her home.
[facility] set up by [facility] Liaison .
PLAN Home with [facility] with potable oxygen from [facility]
--- NOTE | 2024-07-21 12:15 | PN.CDI ---
CDI
- -
CDI:
Physician Documentation Request
Admit Date: 07/18/24 15:36
Dear Doctor Abdon,
07/19- progress note states 'Acute hypoxic respiratory failure with respiratory distress, low SaO2, requiring 4 liters of oxygen....'
Pulmonary refers to the respiratory status as Acute respiratory insufficiency, secondary to splinting/rib fractures
Recognized standard criteria for respiratory failure includes:
(Source: [employer] [facility] Jul 2013)
ABGs (1 or more)
�PO2 <60 or RA SpO2 <91%
�PcO2 >50 and pH <7.35
�pO2 decrease or pcO2 increase by 10 mmHg from baseline if known Symptoms:
�Tachypnea, SOB, dyspnea
�Pallor or cyanosis
�Anxiety or restlessness
�Use of accessory muscles
�Retractions (grunting in newborns)
�Unable to speak in complete sentences
Supplemental O2 requirement of 40% (5LPM) or more Intubation is not required
Based on the above information and the recognized standard for respiratory failure could you please verify this diagnoses is still accurate and reflective of the patient�s condition to ensure quality of the medical record.
Please clarify in the Progress Notes:
�Respiratory failure is/was present and is a clinical diagnosis based on (please include this additional support in the medical record)
�After study respiratory failure has been ruled out
�Other
Use of terms such as suspected, likely, concern for, or probable (associated with a specific diagnosis that is being evaluated, monitored, or treated as if it exists) are acceptable and can be coded in the inpatient setting, when documented at the
time of discharge.
Thank you,
Cherelle Jones RN, BSN
CDI Specialist
tiger text
Please use your independent medical judgment in providing your response.
[2024-07-21 14:09] VITALS: BP 127/63
[2024-07-21] MEDS: DUONEB INH (15:45)
== END 2024-07-21 16:01 | disposition home health service (06) | DRG 183 ==
LOC: 3 WEST ACU 15:36
PROVIDERS: Internal Medicine; Nurse Practitioner Gerontology; ADMITTING PHYSICIAN Internal Medicine; ATTENDING PHYSICIAN Internal Medicine; CONSULT PHYSICIAN Internal Medicine Critical Care Medicine; EMERGENCY PHYSICIAN Emergency Medicine; FAMILY PHYSICIAN Internal Medicine
DX: S22.42XA Multiple fractures of ribs, left side, initial encounter for closed fracture (principal); J96.01 Acute respiratory failure with hypoxia; F11.20 Opioid dependence, uncomplicated; J98.11 Atelectasis; I10 Essential (primary) hypertension; I35.0 Nonrheumatic aortic (valve) stenosis; M35.3 Polymyalgia rheumatica; Z95.828 Presence of other vascular implants and grafts; W19.XXXA Unspecified fall, initial encounter; Y92.009 Unspecified place in unspecified non-institutional (private) residence as the place of occurrence of the external cause; E78.00 Pure hypercholesterolemia, unspecified; G62.9 Polyneuropathy, unspecified; G89.4 Chronic pain syndrome; M54.9 Dorsalgia, unspecified; M19.90 Unspecified osteoarthritis, unspecified site; K44.9 Diaphragmatic hernia without obstruction or gangrene; Z96.649 Presence of unspecified artificial hip joint; Z79.01 Long term (current) use of anticoagulants; Z79.899 Other long term (current) drug therapy; Z87.891 Personal history of nicotine dependence; Z87.81 Personal history of (healed) traumatic fracture; Z91.81 History of falling; Z86.711 Personal history of pulmonary embolism; Z86.718 Personal history of other venous thrombosis and embolism; Z85.820 Personal history of malignant melanoma of skin; Z85.828 Personal history of other malignant neoplasm of skin
CPT/HCPCS: 71045; 71046; 71250; 80048; 80053; 82962; 83036; 83880; 84484; 85025; 85027; 87502; 87811; 93005; 94640; 94760; 96374; 96375; 97116; 97162; 97166; 99284; 99285

== ENCOUNTER → 2024-10-20 09:48 | Outpatient (REF) | payer MEDICARE, OTHER, SELFPAY | LOC: HWRAD 09:48 | PROVIDERS: ATTENDING PHYSICIAN Nurse Practitioner Adult Health; FAMILY PHYSICIAN Internal Medicine | DX: S22.49XS Multiple fractures of ribs, unspecified side, sequela (principal) | CPT/HCPCS: 71250 ==

== ENCOUNTER → 2025-03-05 10:49 | Outpatient (REF) | payer MEDICARE, OTHER, SELFPAY | LOC: RCS 10:49 | PROVIDERS: ATTENDING PHYSICIAN Internal Medicine Cardiovascular Disease; FAMILY PHYSICIAN Internal Medicine | DX: I35.0 Nonrheumatic aortic (valve) stenosis (principal) | CPT/HCPCS: 93306 ==

== ENCOUNTER → 2025-04-13 08:48 | Outpatient (REF) | payer MEDICARE, OTHER, SELFPAY | LOC: RAD 08:48 | PROVIDERS: ATTENDING PHYSICIAN Surgery; FAMILY PHYSICIAN Internal Medicine | DX: K44.9 Diaphragmatic hernia without obstruction or gangrene (principal) | CPT/HCPCS: 74246 ==

== ENCOUNTER → 2025-05-11 11:39 | Outpatient (REF) | payer MEDICARE, OTHER, SELFPAY | LOC: HWRAD 11:39 | PROVIDERS: ATTENDING PHYSICIAN Radiology Diagnostic Radiology; FAMILY PHYSICIAN Internal Medicine; REFERRING PHYSICIAN Psychiatry & Neurology Neurology | DX: M54.50 Low back pain, unspecified (principal); M54.17 Radiculopathy, lumbosacral region | CPT/HCPCS: 72072; 72100 ==

== ENCOUNTER → 2025-05-19 12:52 | Outpatient (REF) | payer MEDICARE, OTHER, SELFPAY | LOC: PAVMRI 12:52 | PROVIDERS: ATTENDING PHYSICIAN Psychiatry & Neurology Neurology; FAMILY PHYSICIAN Internal Medicine | DX: G89.4 Chronic pain syndrome (principal); M96.1 Postlaminectomy syndrome, not elsewhere classified; M54.50 Low back pain, unspecified; M54.17 Radiculopathy, lumbosacral region | CPT/HCPCS: 72148; 76014; 76015 ==

== ENCOUNTER 2025-06-30 11:21 | Emergency (ER) | payer MEDICARE, OTHER, SELFPAY ==
[2025-06-30] VITALS (7 sets, daily range): BP systolic 89–108; BP diastolic 43–65; PULSE 68–77; BMI 32.4
--- NOTE | 2025-06-30 11:28 | ED.GENMED ---
History of Present Illness
General
Chief Complaint: Blood Pressure Problem
Source: patient and family (Daughter, who lives with patient is at bedside)
Exam Limitations: none
Time Seen by Provider: 06/30/25 11:26
Nursing documentation reviewed up to this point in time: agreed with
History of Present Illness
History of Present Illness:
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
urinary incontinence and frequency for low blood pressure and episode of sweating.
Patient presents stating she has had episodes where she breaks out in a sweat, gets 'out of breath when I walk and get weak and tired.' She denies getting dizzy. These episodes have been happening almost weekly for the past several months
according to daughter and pt.
She states SOB started 5 years ago after a hip fracture. Last June she fell and had multiple rib fractures and since then he has had wheezing, cough, severe weakness and shortness of breath daughter at bedside agrees the symptoms have been
intermittent and seem to have started within the past year, with her short of breath getting worse after fracturing her rib, also has developed a significant cough which is worse at night and produces mucus. Cough is minimal during the day. All
respiratory symptoms are chronic.
Patient has been evaluated by cardiology, pulmonology and is followed by her PCP Noah Wolfe.
Per patient, Pulmonology w/u has been basically unremarkable
She had two blood pressure medications added to her Losartan/HCTZ about 6 mos ago as her BP was 'really high.' These are Amlodipine Besylate 5 mg OD and Carvedilol 25 mg BID.
Past History
Past History
ED Past Medical History: HTN, Hypercholesterolemia, Valvular disease and Other (Neuropathy)
ED Past Surgical History: Orthopedic, Tonsilectomy, Urological and Other (Parathyroid removal)
Social History
Tobacco: Non-smoker
Alcohol: None
Living: with family
Family History
Family History: Other (Per daughter, family history of scleroderma interstitial lung disease)
Review of Systems
Review of Systems
Allergies reviewed?: Yes
All Other Systems: ROS reviewed and negative except as documented in HPI and ROS
Phy Exam
Physical Exam
Physical Exam:
GENERAL: No acute distress. A&Ox3.
CONSTITUTIONAL: Afebrile.
EYES: clear, conjunctivae normal
ENMT: moist mucus membranes, Pharynx nl
RESPIRATORY: Regular respirations, nonlabored, lungs with good air movement, fine crackles and wheeze R lung base only. Pulse ox 93% RA
CARDIOVASCULAR: Regular rate and rhythm, no murmurs, no rubs.
GI: Soft, nontender, normal BS
MUSCULOSKELETAL: Moves with ease. Well perfused. No edema
SKIN: Warm, dry, pink
PSYCH: Normal mood and affect. Well kept, interactive and appropriate
NEUROLOGIC: Awake, alert and oriented. No focal neurological deficits
Course
Orders/Labs/Results
Orders:
Orders
06/30/25 11:24
Electrocardiogram (*1) Urgent
Reason for Study: Fatigue / Weakness
EKG- Treatment ONCE
06/30/25 11:36
Complete Blood Count/With Diff Urgent
Comprehensive Metabolic Panel Urgent
Troponin I Urgent
0.9% Sodium Chloride 1000 ml [Nss] 1,000 ml IV BOLUS
06/30/25 11:58
Orthostatic VS- Treatment ONCE
06/30/25 12:39
Ipratropium/Albuterol Sulfate [Duoneb] 3 ml INH R NOW STA
06/30/25 13:09
Dexamethasone Sod Phosphate [Decadron] 10 mg IV NOW STA
Abnormal Lab Results
06/30/25 06/30/25
11:32 11:36
Hgb 10.4 L g/dL
(12.0-16.0)
Hct 35.4 L %
(37.0-47.0)
MCV 79.9 L fL
(81.0-99.0)
MCH 23.5 L pg
(27.0-31.0)
MCHC 29.4 L g/dL
(33.0-37.0)
RDW 17.2 H %
(11.5-14.5)
Abs Immat Gran (auto) 0.1 H 10^3/uL
(0-0.05)
Absolute Lymphs (auto) 1.1 L 10^3/uL
(1.2-3.4)
Absolute Monos (auto) 0.8 H 10^3/uL
(0.1-0.6)
Immature Gran % 0.8 H %
(0-0.5)
Lymphocytes % 13.2 L %
(20.5-51.1)
Monocytes % 9.5 H %
(1.7-9.3)
BUN 24 H mg/dl
(7-17)
Creatinine 1.1 H mg/dL
(0.6-1.0)
Glucose 120 H mg/dl
(70-99)
POC Glucose 134 H mg/dl
(70-99)
06/30/25 11:36
06/30/25 11:36
Vital Signs
Initial and Last Documented VS:
Initial Vital Signs
BP
89/43
06/30/25 11:25
Last Documented Vital Signs
Temp Pulse Resp BP Pulse Ox
97.9 F 66 19 106/49 93
06/30/25 11:26 06/30/25 13:30 06/30/25 13:30 06/30/25 13:05 06/30/25 13:50
Postal Inspector consulted with Physician
Postal Inspector consulted with physician?: Yes
Name of Physician Consulted: Noh
MDM/Problems Addressed
Differential Diagnosis Includes:
Asthma, bronchitis, medication side effect, dehydration
MDM/Problems Addressed:
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
urinary incontinence and frequency for low blood pressure and episode of sweating.
Patient presents stating she has had episodes where she breaks out in a sweat, gets 'out of breath when I walk and get weak and tired.' She denies getting dizzy. These episodes have been happening almost weekly for the past several months
according to daughter and pt.
She states SOB started 5 years ago after a hip fracture. Last June she fell and had multiple rib fractures and since then he has had wheezing, cough, severe weakness and shortness of breath daughter at bedside agrees the symptoms have been
intermittent and seem to have started within the past year, with her short of breath getting worse after fracturing her rib, also has developed a significant cough which is worse at night and produces mucus. Cough is minimal during the day. All
respiratory symptoms are chronic.
Patient has been evaluated by cardiology, pulmonology and is followed by her PCP Noah Wolfe.
Per patient, Pulmonology w/u has been basically unremarkable
She had two blood pressure medications added to her Losartan/HCTZ about 6 mos ago as her BP was 'really high.' These are Amlodipine Besylate 5 mg OD and Carvedilol 25 mg BID.
EKG NSR rate 62
Records reviewed and during her visit 07/18/2024 the pulmonary G progress note notes that she has chronic shortness of breath and can only walk about 20 feet without significant shortness of breath and had a cardiac workup which was negative.
Medication list updated.
CBC unremarkable, consistent with her baseline
CMP with mild elevation of creatinine at 1.1, patient is dehydrated, she received 1 L of fluid and encouraged to increase her fluid intake.
12:45 p.m
In to re evaluate: Now with low pitched wheezes all lung casiano, coarse cough.
Duo neb ordered. Pt now tells me she has nebulizer at home but 'they never gave me any medication for it so has never used it. She has been using her Albuterol inhaler at times.
Pt on Eliquis, SOB is chronic and pt states no change, no tachycardia or new hypoxemia, do not suspect PE.
Pt SOB is multifactorial, chronic and with no new symptoms, is followed by Pulmonology. No indication for further workup.
Will fill her nebulization Albuterol and she will do nebs at home prn
Rx for short burst steroid sent to her pharmacy.
Pt to start P/T for deconditioning soon. She has rx, just has to call to schedule.
Spoke with Noah Smith, he is familiar with her, he agrees with home nebs, steroids, recommends decreasing Carvedilol 25 mg BID to 12.5 mg BID and he will see her in office next Saturday. Someone from office with call her.
Pt and family comfortable with this plan.
Pt is maintaining her BP systolic low 100's.
Orthostatics negative.
*Pulse Oximetry
SaO2: 94
Oxygen Mode of Delivery: Room air
Patient hypoxic: no
*EKG
EKG Intrepretation Date: 06/30/25
Interpretation: normal
Heart Rate: 67
Rate: normal
Rhythm: sinus
Jenners: normal axis
Interval: normal interval
QRS Pattern: normal QRS
Ischemia: no ischemia
*Critical Care Note
Total Time (30-74mins, 75-104mins- exclusive of procedures): Not Applicable
ED Attending Note
-
Portions of this chart may have been created with voice recognition software.� Occasional wrong word or��sound alike� substitutions may have occurred due to the inherent limitations of voice recognition software.
Discharge Plan
Departure
Patient Disposition: Home (Routine Discharge)
Date of Disposition: 06/30/25
Time of Disposition: 13:28
Patient with high blood pressure during this ER visit?: No
Condition: Good
Discharge Problem:
Acute hypotension, Acute exacerbation of chronic bronchitis
Instructions: Bronchitis in adults - ED (DC), Managing low blood pressure from your medicines
Prescriptions:
New
prednisone 20 mg tablet
40 mg PO DAILY Qty: 5 0RF
albuterol sulfate 2.5 mg /3 mL (0.083 %) solution for nebulization
2.5 mg inhalation QID PRN (Reason: shortness of breath or wheezing) Qty: 90 0RF
No Action
alprazolam 0.5 mg tablet
0.5 mg PO DAILYPRN PRN (Reason: anxiety)
cyclobenzaprine 5 mg Tablet
5 mg PO HSPRN PRN (Reason: muscle spasm)
losartan-hydrochlorothiazide 100-12.5 mg tablet
1 tab PO DAILY
cholecalciferol (vitamin D3) [Vitamin D3] 25 mcg (1,000 unit) Tablet
50 mcg PO NOON
azelastine 205.5 mcg (0.15 %) [place],Non-Aerosol
2 spray INTRANASAL BID
venlafaxine [Effexor XR] 150 MG capsule,extended release 24hr
150 mg PO DAILY
amitriptyline 25 MG tablet
25 mg PO HS
docusate sodium 100 MG capsule
100 mg PO TID
ascorbic acid (vitamin C) [Vitamin C] 500 mg Tablet
500 mg PO NOON
Ocutabs Tablet
1 tab PO NOON
Eliquis 5 MG tablet
5 mg PO BID Qty: 0 0RF
albuterol sulfate 90 mcg/actuation Hfa Aerosol Inhaler
2 inh INHALATION R BID
Caltrate 600 plus D 600 mg-20 mcg (800 unit) Tablet,Chewable
1 tab PO NOON
zolpidem 10 MG tablet
10 mg PO HS
oxycodone 5 MG tablet
5 - 10 mg PO Q6HPRN PRN (Reason: severe pain)
carvedilol 25 mg tablet
25 mg PO BID
gabapentin 300 mg capsule
300 mg PO TIDPRN PRN (Reason: moderate pain)
azelastine [Astepro] 137 mcg (0.1 %) [place],Non-Aerosol
1 spray INTRANASAL BID
solifenacin 5 mg tablet
5 mg PO DAILY
Probiotic 10 billion cell Capsule
10,000 mmu cells PO DAILY
simvastatin 80 MG tablet
80 mg PO QPM Qty: 30 0RF
omeprazole 20 MG capsule,delayed release(DR/EC)
20 mg PO DAILY Qty: 30 0RF
Referrals:
Noah Wolfe MD [Family Provider, Internal Medicine] - Keep scheduled appt
Activity Restrictions/Additional Instructions:
As we discussed, I spoke with your primary doctor and he wants you to break the carvedilol in half and take that twice a day. So you will be taking carvedilol 12.5 mg twice a day. He wants to see you in the office next Saturday, someone from the
office will call you to set up that appointment.
I sent a prescription to your pharmacy for albuterol to use in your nebulizer. You may do nebulization treatments up to 4 times a day as needed.
I also sent a prescription to your pharmacy for prednisone 40 mg a day for 4 days, started tomorrow as we gave you a dose of steroid here today.
Interventions
Interventions:
*Risk Screen - Suicide Last Done: 06/30/25 11:26
*General Assessment Last Done: 06/30/25 11:26
*Neglect/Abuse Screening Last Done: 06/30/25 11:26
*ED- Fall Risk Assessment Last Done: 06/30/25 11:38
*ED COVID-19 Vaccine History Last Done: 06/30/25 11:38
*ED Influenza Vaccine History Last Done: 06/30/25 11:38
*Nursing Disposition Last Done: 06/30/25 13:50
ED- Cardiac Assessment Last Done: 06/30/25 11:42
ED- Neurological Assessment Last Done: 06/30/25 11:42
ED- Pulmonary Assessment Last Done: 06/30/25 11:42
Discharge Date and Time
Discharge Date/Time: 06/30/25 13:55
Print Language: [place]
[2025-06-30 11:33] LABS: Glucose - Point of Care 134 mg/dl (70-99)
[2025-06-30] MEDS: NSS 1000 IV (11:37)
[2025-06-30 11:45] LABS: Hematocrit 35.4 % (37.0-47.0); Hemoglobin 10.4 g/dL (12.0-16.0); Mean Corp Hgb Conc. 29.4 g/dL (33.0-37.0); Mean Corpuscular Volume 79.9 fL (81.0-99.0); Nucleated Red Blood Cells % 0 %; Platelet Count 265 10^3/uL (130-400); Red Cell Dist. Width 17.2 % (11.5-14.5)
[2025-06-30 12:05] LABS: ALT (SGPT) 13 U/L (0-35); AST (SGOT) 19 U/L (14-36); Albumin 3.7 g/dl (3.5-5.0); Alkaline Phosphatase 64 U/L (38-126); Blood Urea Nitrogen 24 mg/dl (7-17); Calcium 9.2 mg/dl (8.4-10.2); Carbon Dioxide 29 mmol/L (22-30); Chloride 104 mmol/L (98-107); Estimated Creatinine Clearance 37 ml/min; Glucose 120 mg/dl (70-99); Potassium 4.7 mmol/L (3.5-5.1); Sodium 139 mmol/L (135-145); Total Protein 6.6 g/dl (6.3-8.2); eGFR 48.94
[2025-06-30 12:18] LABS: Troponin I < 0.012 ng/ml
[2025-06-30] MEDS: DUONEB 3 ML INH (12:49)
[2025-06-30] MEDS: DECADRON 10 MG IV (13:27)
== END 2025-06-30 13:55 | disposition home or self-care (01) ==
LOC: EMR 11:21
PROVIDERS: EMERGENCY PHYSICIAN Emergency Medicine; FAMILY PHYSICIAN Internal Medicine
DX: I95.9 Hypotension, unspecified (principal); J42 Unspecified chronic bronchitis; E86.0 Dehydration; I35.0 Nonrheumatic aortic (valve) stenosis; I10 Essential (primary) hypertension; E78.00 Pure hypercholesterolemia, unspecified; F32.A Depression, unspecified; R32 Unspecified urinary incontinence; G62.9 Polyneuropathy, unspecified; M54.9 Dorsalgia, unspecified; G89.29 Other chronic pain; Z79.01 Long term (current) use of anticoagulants; Z96.82 Presence of neurostimulator; Z86.711 Personal history of pulmonary embolism; Z86.718 Personal history of other venous thrombosis and embolism
CPT/HCPCS: 99284; 96374; 96361; 94640; 80053; 82962; 84484; 85025; 93005